=== PATIENT | female | born 1970 | race Caucasian/White ===

== ENCOUNTER 2024-03-07 11:14 | Outpatient (OUT) | payer BC, SELFPAY ==
--- NOTE | 2024-03-07 11:17 | MM_ITS ---
Patient Name: EZ EDMONDSON MR#: [id number] : 1970 Exam Date: 03/07/2024 Ordering Doctor: DR RILEY VALVERDE M.D. RADIOLOGY REPORT PROCEDURE: MM TOMOSYNTHESIS SCREENING BI COMPARISON: MG MAMM SCREEN 3D ELDON CAD, 12/22/2022. MG MAMM DX 3D RT CAD, 05/31/2022. MG MAMM ELDON SCRN W CAD DIG, 12/10/2012. INDICATIONS: Screening Calculator Name NCI Breast Cancer Risk Assessment Tool 5 Year Breast Cancer Risk 1.00% Lifetime Breast Cancer Risk 6.70% Personal Breast Cancer No Personal Ovarian Cancer No Treatments None Family Cancers Father with lymphoma cancer at age 66; Grandfather-paternal with colon cancer at age 66. LOCATION: [facility] BREAST COMPOSITION: The breasts are extremely dense, which lowers the sensitivity of mammography. FINDINGS: DIAGNOSTIC CATEGORY 1--NEGATIVE. RIGHT BREAST: No significant suspicious finding. No significant change has occurred. LEFT BREAST: No significant suspicious finding. No significant change has occurred. RECOMMENDATIONS: ROUTINE MAMMOGRAM AND CLINICAL EVALUATION IN 12 MONTHS. PLEASE NOTE: A NORMAL MAMMOGRAM DOES NOT EXCLUDE THE POSSIBILITY OF BREAST CANCER. A CLINICALLY SUSPICIOUS PALPABLE LUMP SHOULD BE BIOPSIED. Dictated by: Bebo Garvin M.D. on 03/07/2024 at 14:20 Approved by: Bebo Garvin M.D. on 03/07/2024 at 14:27
== END 2024-03-07 11:15 | disposition home or self-care (01) ==
LOC: MAMMO 11:15
PROVIDERS: PCP Internal Medicine; Visit Provider Internal Medicine
DX: Z12.31 Encounter for screening mammogram for malignant neoplasm of breast (principal); Z80.7 Family history of other malignant neoplasms of lymphoid, hematopoietic and related tissues; Z80.0 Family history of malignant neoplasm of digestive organs
CPT/HCPCS: 77063; 77067

== ENCOUNTER 2025-07-15 10:00 | Outpatient (OUT) | payer BC, SELFPAY ==
--- OUTSIDE RECORDS SUMMARY | 2024-07-09 16:00 | XMS_ITS ---
Author Organization [facility] Address [address] [facility] [address] [place] [address] Care Team Providers Care Carpet Finishing Supervisor Name Role Phone Catalina Danielson Primary Care Provider [phone] Angel Schultz Unavailable [phone] CATALINA DANIELSON MD Unavailable Unavailable REASON FOR VISIT lab [facility]RAYSON NF Encounters Encounter Location Date Provider Diagnosis [facility] [address] [facility] [address] [place] [address] 07/09/2024 Angel Schultz Plan Of Treatment No Information Progress Notes * Barbara EDMONDSONDOB:[birth year] (55 yo F)Acc No.[id number]:07/09/2024 Patient:?Barbara Edmondson ??External :?Angel Schultz MDDOB: 1970???Age:54 Y???Sex:FemaleDate:07/09/2024hone:[phone]:[address] , [place], [place]-[address]Pcp:Catalina Danielson Subjective: * Chief Complaints: * l ab [facility]GE GRAYSON NF * Electronic signature of Angel Schultz MD on 07/20/2025 at 07:09 AM ESTSign off status: Pending * Provider: Tatyana Schultz MD Date: 1 09/09/2023 Generated for Printing/Faxing/eTransmitting on:?07/20/2025 07:09 AM EST
--- OUTSIDE RECORDS SUMMARY | 2024-07-17 02:30 | XMS_ITS ---
Author Organization [facility] Address [address] [facility] [address] [place] [address] Care Team Providers Care Marketing Administrative Assistant Name Role Phone Catalina Danielson Primary Care Provider [phone] Angel Schultz Unavailable [phone] CATALINA DANIELSON MD Unavailable [facility] [phone] Erum Haider Reduction mammoplasty & Lipo FA, hips, FBR & skin exc -General Encounters Encounter Location Date Provider Diagnosis [facility] [id number] [id number] [facility] [address] [place], [place] [id number] 07/17/2024 [facility] Plan Of Treatment No Information Progress Notes * Barbara EDMONDSONDOB:[birth year] (55 yo F)Acc No.[id number]:07/17/2024 Progress Note Patient: Barbara Ramos ??External :[facility]: 1970???Age:54 Y???Sex:FemaleDate:4Phone:[phone]:[address] , [place], [place]-[address]Pcp:Catalina Danielson Subjective: * Chief Complaints: * Robina Haider Reduction mammoplasty & Lipo FA, hips, FBR & skin exc -General * Electronic signature of [facility] Yumiko MD on 07/20/2025 at 07:09 AM EST Sign off status: Pending * Provider: Ed Calderon Date: 09/17/2023 Generated for Printing/Faxing/eTransmitting on:?07/20/2025 07:09 AM EST
--- OUTSIDE RECORDS SUMMARY | 2024-07-31 07:45 | XMS_ITS ---
Author Organization [facility] Address [address] [facility] [address] [place] [address] Care Team Providers Care Sterile Processing Manager Name Role Phone Catalina Danielson Primary Care Provider [phone] Angel Schultz Unavailable [phone] CATALINA DANIELSON MD Unavailable Unavailable Allergies Allergen (clinical drug ingredient) Drug/Non Drug Allergy documented on EMR Reaction Allergy Type Onset Date Status Substance with sulfonamide s tructure and antibacterial mechanism of action (substance) Sulfa Antibiotics Unknown Drug Allergy Active REASON FOR VISIT post op RM ,lipo Medications Medication SIG (Take, Route, Frequency, Duration) Notes Start Date End Date Status Metoprolol Succinate ER ActiveCephalexin 500 MG Tablet1 tablet Orally Four times a day; Duration: 5 day(s)4ActivePROzacActivePromethazine HCl 12.5 MG Tablet1 tablet as needed Orally every 6 hrs; Duration: 5 day(s)4ActiveoxyCODONE- Acetaminophen 5-325 MG Tablet1 tablet as needed Orally every 6 hrs; Duration: 7 days07/16/2024ctiveLORazepamActiveAspirinActive Vital Signs Height 66 in 07/31/2024 Weight 200 lbs 07/31/2024 BMI 32.28 kg/m2 07/31/2024 Encounters Encounter Location Date Provider Diagnosis [facility] [address] [id number]/MARGE [address] [facility] [address] [place] [address] 07/31/2024 Catalina Danielson Macromastia N62 Assessments Encounter Date Diagnosis (ICD Code) Assessment Notes Treatment Notes Treatment Clinical Notes Section Notes 07/31/2024 Macromastia (ICD-10 - N62) Continue aggressive compression Pathology report was discussed with patient. Please see scanned report Scar management was advised Plan Of Treatment Treatment Notes Assessment Notes Macromastia Continue aggressive compression Pathology report was discussed with patient. Please see scanned report Scar management was advised Next Appt Details Follow Up: 4 Weeks, Reason: History and Physical Notes * HPI (History of Present Illness) CategorySub-CategoryDetailNotesCategory NotesPost-Op VisitsBody Surgery Follow-Up:The patient is post-op from RM and Liposuction of FA, Hips, FBR and skin excision, The patient has been compliant with post op instructions, This is a postoperative visit at approximately day 14, Thepatient complains of nothing. Examination CategorySub-CategoryDetailNotesCategory NotesPlastic Surgery ExaminationsGeneral ExaminationGENERAL APPEARANCE: normal, alert, well hydrated, in no distress, oriented x 3, pleasantPostoperative Check/Procedure:Type of Surgery, RM, Surgical incision clean,dry,and intact, No evidence of seroma or hematoma, Nipp le areola complex are symmetric with intact sensation, No signs and symptoms of infection Skin EX,,Surgical incision clean,dry,and intact, No evidence of seroma or hematoma, No signs and symptoms ofinfection Progress Notes * Barbara EDMONDSONDOB:[birth year] (55 yo F)Acc No.[id number]:07/31/2024 Progress Note Patient: Barbara Ramos ??External :?Catalina Danielson, MDDOB: 1970???Age:54 Y???Sex:FemaleDate:07/31/2024Phone:[phone]:[address], [facility] Subjective: * Chief Complaints: * p ost op RM ,lipo * HPI: ???Post-Op Visits:?Body Surgery Follow-Up:?The patient is post-op from RM andLiposuction of FA, Hips, FBR and skin excision, The patient has been compliant with post op instructions, This is a postoperative visit at approximately day 14, The patient complains of nothing.. * Medical History: Anemia Diabetic A-fib Depression Anxiety Medical History Verified * Surgical History: GALLBLADDER OUT ? WISDOM THEETH REMOVAL ? asc RM ? Surgical History verified.? * Ocular Surgical History: * Hospitalization/Major Diagno stic Procedure: Denies Past Hospitalization.? Hospitalization Verified.? * Family History: F ather: diagnosed with Hypertension, Heart Disease. M other: diagnosed with Hypertension.?Paternal Grand Father: diagnosed with Cancer. F amily History Verified.. * Social History: Social History Verified. No Social History documented. * Medications: T akingAspirin Cephalexin 500 MG Tablet 1 tablet Orally Four times a day LORazepam Metoprolol Succinate ER oxyCODONE-Acetaminophen 5-325 MG Tablet 1 tablet as needed Orally every 6 hrs Promethazine HCl 12.5 MG Tablet 1 tablet as needed Orally every 6 hrs PROzac Medication List reviewed and reconciled with the patientTaking Aspirin Taking Cephalexin 500 MG Tablet 1 tablet Orally Four times a day Taking LORazepam Taking Metoprolol Succinate ER Taking oxyCODONE-Acetaminophen 5-325 MG Tablet 1 tablet as needed Orally every 6 hrs Taking Promethazine HCl 12.5 MG Tablet 1 tablet as needed Orally every 6 hrs Taking PROzac Medication List reviewed and reconciled with the patient * Allergies: S ulfa Antibiotics - Criticality UnknownyesAllergies Verified. Objective: * Vitals: H eight: 66 in, Weight: 200 lbs, BMI:32.28Index, Risk Score: Not Taken - No Medical Need. Vision Examination:? * Examination: ???Plastic Surgery Examinations: ?General Examination?GENERAL APPEARANCE: normal, alert, well hydrated, in no distress, oriented x 3, pleasant.?Postoperative Check/Procedure:?Type of Surgery, ?RM, Surgical incision clean,dry,and intact, No evidence of seroma or hematoma, Nipple areola complex are symmetric with intact sensation, No signs and symptoms of infection ?Skin EX,, Surgical incision clean,dry,and intact, No evidence of seroma or hematoma, No signs and symptoms of infection.? Assessment: * Assessment: 1.?Macromastia - N62 (Primary)??? Plan: * Treatment: Notes: Continue aggressive compression ?Pathology report was discussed with patient. Please see scanned report ?Scar management was advised?? * Follow Up: 4 Weeks Billing Information: * Visit Code: [id number] Post op Visit. * Electronic signature of Catalina Danielson MD on 07/20/2025 at 07:09 AM ESTSign off status: Pending * Provider: Lana Danielson MD Date: 0 07/31/2024 Generated for Printing/Faxing/eTransmitting on:?07/20/2025 07:09 AM EST
--- OUTSIDE RECORDS SUMMARY | 2025-07-07 06:44 | XMS_ITS | Continuity of Care Document ---
Author Organization [facility] Address [address] [place] [address] Phone Care Team Providers Care Apartment Manager Name Role Phone Gerardo Poe II Primary Care Provider [phone] Kay Marlow APRN Emergency Provider [phone] Cheryl Douglas NP-C Attending Provider Moy Quick MD Attending Provider Dara Izaguirre DO Attending Provider Care Teams Patient Care Team Team Status: Active Member Role/Relationship Status Dates Gerardo Poe II MD Primary Care Provider Active Visit Care Team Team Status: Inactive Member Role/Relationship Status Dates Gerardo Poe II MD Primary Care Provider Active Start: June 07, 2025 End: June 07Tucker Finch ProviderActiveStart: June 07, 2025 End: June 07, 2025 Visit Care Team Team Status: Inactive Member Role/Relationship Status Dates Gerardo Poe II MD Primary Care Provider Active Start: June 18, 2025 End: June 18, 2025Lucina Ho ProviderActiveStart: June 18, 2025 End: June 18, 2025 Visit Care Team Team Status: Inactive Member Role/Relationship Status Dates Gerardo Poe II MD Primary Care Provider Active Start: July 02, 2025 End: July 02, 2025Jackie R Misael , ADMINISTRATIVE NURSING SUPERVISOR-CAttending ProviderActiveStart: July 02, 2025 End: July 02, 2025 Visit Care Team Team Status: Inactive Member Role/Relationship Status Dates Gerardo Poe II MD Primary Care Provider Active Start: July 02, 2025 End: July 02, 2025Moy Tiffanie Amanda Quick ProviderActiveStart: July 02, 2025 End: July 02, 2025 Patient Care Team Team Status: Inactive Member Role/Relationship Status Dates Gerardo Poe II MD Primary Care Provider Active Start: July 07, 2025 End: July 07, 2025Wicho Flores ProviderActiveStart: July 07, 2025 End: July 07, 2025 Chief Complaint and Reason for Visit Chief Complaint Admit Date head pain June 07, 2025 1 1:54am ref by Nicole Barnes for dysplasia caroti d arteries June 18, 2025 10:20am 2 week follow up; Carotid U/S at 10:00am July 02, 2025 9:45am I65.23 July 02, 2025 9 :47am ADMINISTRATIVE NURSING SUPERVISOR - Migraines - OK TO ADD SOONER PER ND July 07, 2025 10:51am Reason for Visit Admit Date Fibromuscular dysplasia of both carotid arteries June 18, 2025 10:20am Migraine headache June 18, 2025 10:20am Fibromuscular dysplasia of both carotid arteries July 02, 2025 9:45am Migraine headache July 02, 2025 9 :45am Reason for Referral Type Reason(s) Provider Provider Contact Information [facility] Address Start Date Migraine headache G43.909 - Migraine, unspecified, not intractable, without status migrainosus Gerardo Poe II MDWork Phone: [phone] [facility] [address] [facility] [address] - Migraine, unspecified, not intractable, without status migrainosus[address] [address]Xyhusznx [address]24 Allergies, Adverse Reactions, Alerts Allergen Type Severity Reaction Last Updated Verified Status moxifloxacin Allergy Unknown rash June 11:01am Yes Active sulfacetamide Allergy Unknown rash June 11:01am Yes Active sulfamethoxazole Allergy Unknown rash July 07, 2025 11:01am Yes Active sulfur Allergy Unknown rash July 07, 2025 11:01am Yes Active trimethoprim Allergy Unknown rash June 11:01am Yes Active Sulfa (Sulfonamide Antibiotics) Allergy Unknown Hives July 07, 2025 11:01am Yes Active ct scan dye Allergy Severe Rash June 07, 2025 12:09pm No Active Social History Smoking Status Status Start Date End Date Date of Observa tion Ex-smoker (finding) July 06, 2025 11:23am Observation Status Observation Response Date of Response Legal Sex Female (finding) [facility] 1969[facility] Family History Relationship Condition Age at Onset Recorded Date/T hany father Heart disease Unknown Problems Active Problems Problem Diagnosis/Recorded Date Onset Date Stat us Fibromuscular dysplasia of b oth carotid arteries June 18, 2025 3:03pm Unknown Active Migraine headache June 18, 2025 3:03pm Unknown Active Animal bite of buttock May 28, 2019 6:10pm Unkno wn Active Hx of cholecystectomy June 18, 2025 10:29am Unkn own Active Inactive/Resolved Problems Problem Diagnosis/Recorded Date Onset Date Stat us Headache June 07, 2025 3:30pm Unknown Re solved Medications Medication Status Dose Units Route Directions Qty Days Refills S tart Date Stop Date End Date Reason(s) Instructions Adherence Aspirin 325 mg Tablet Discontinued 325 MG PO Daily June 05, 2017 12:00amNove2024 10:27amFluoxetine 10 mg Tablet Zspoymsiwsss97ROWFVwtpsDmwbummd 2016 12:00amOctro[facility] 2018 4:37pm Metoprolol Tartrate 50 mg YtrrgfVlmfft84ZZOUIhzoxCctknjny 2016 12:00am Complies with drug therapyOmeprazole Magnesium (Prilosec Otc) 20 mg Tablet,Delayed Release (Dr/Ec)Oznjiq17PTWFQzlqpBolknsad 2016 12:00am Complies with drug therapyFerric Carboxymaltose (Injectafer) 50 iron mg/mL JzxmjgcvYbajkxwkcimz25wy/weEVO4AEpaespjc 2016 12:00amOctober 2018 4:37pmFluoxetine 20 mg fvybmdrEctckj85WNILSbcpoTjxeotq 2018 11:00pm Complies with drug therapyLorazepam 0.5 mg tabletActive0.5MGPOEvery 8 hours as needed for anxietyJune 07, 2025 12:00amComplies with drug therapyTizanidine 4 mg tabletDiscontinuedMGPONove2024 12:00amDecember 2024 11:02am Aspirin 81 mg tablet,nrggumqqEjtfdw79EVZQZfmsaTlbaddvn 20th, 2025 12:00am Complies with drug therapy Immunizations Immunization Event Date Not Given Reason Dose Number Signal Operator Lot Number Reason(s) Given Vaccine Information Statement (VIS) Detail Administration Location Rabies Immune Globulin May 28, 2019 [id number] CtrRabies Vaccine, flury-lep [id number] CtrRabies Vaccine, flury-lep strain May 31, [id number] CtrRabies Vaccine, flury- lep strainJune 04, [id number] CtrRabies Vaccine, flury-lep strainNovhopi health care center [id number] Ctr Procedures Procedure Date Performed Status CT head/brain wo con June 07, 2025 12:22pm completed CT angio head June 07, 2025 12:27pm compl eted CT angio neck June 07, 2025 12:27pm compl eted US carotid doppler BI July 02, 2025 9:47am completed Relevant Diagnostic Tests and/or Laboratory Data Laboratory Results Test Collection Date/Time Result Date/Time Result Interpretation Reference Range Result Comment Performing Site Corrected White Blood Count June 07, 2025 12:33pm June 07, 2025 12:50pm 6.2 10*3/uL 3.8-11.6[facility]ari[facility] [id number] [address] [facility] [address]Qjlsvdzjvmb WBC CountJune 07, 2025 12:33pmJune 07, 2025 12:50pm6.2 10*3/uL3.8-11.6FMarietta Memorial Hospital [id number] [address] [facility] [address]Ean Blood CountJune 07, 2025 12:33pmJune 07, 2025 12:50pm4.29 10*6/uL3.60-5.00[facility] [id number] [address] [facility] [address]WrlnetkmlmWhpseqko 2024 12:33pmNovember 2024 12:50pm 13.2 g/dL11.8-15.4FProMedica Flower [facility] [id number] [address] [facility] [address]SedyejexceBsajfbjh 2024 12:33pmNovember 2024 12:50pm 39.3 %34.0-46.4FProMedica Flower Hospital [facility]tr [id number] [address] [facility] [address]Bcrk Corpuscular VolumeNovember 2024 12:33pmNovember 2024 12:50pm91.6 dQ83-265DzrsoubswGlenbeigh Hospital Ctr [id number] [address] [facility] [address]Izdc Corpuscular HemoglobinNovember 2024 12:33pmNovember 2024 12:50pm30.8 pg24.7-34.3FProMedica Flower Hospital [facility] [id number] [address] [facility] [address]Zsxn Corpuscular Hemoglobin ConcentNovember 2024 12:33pm November 2024 12:50pm33.7 g/dL32.0-35.0[facility] [id number] [address] [facility] [address]Fwt Cell Distribution WidthNovember 2024 12:33pmNovember 2024 12:50pm13.4 %11.9-15.3FProMedica Flower [facility] [id number] [address] [facility] [address]Ajqieinv CountNov2024 12:33pmNovember 2024 12:33nb021 10*3/dF108-733BwhpxxbitGlenbeigh Hospital [facility]tr [id number] [address] [facility] [address]Enqj Platelet VolumeNovember 2024 12:33pmNovember 2024 12:50pm10.4 fL6.3-10.7FProMedica Flower Hospital [facility]tr [id number] [address] [facility] [address]Gskthaze Distribution WidthNovember 2024 12:33pmJune 07, 2025 12:50pm18.14 %0.00-20.00[facility] [id number] [address] [facility] [address]Atkktunvmwc (%) (Auto)June 07, 2025 12:33pmNov2024 12:50pm64.8 %.[facility] [id number] [address] [facility] [address]Vfqydeuxwik (%) (Auto)June 07, 2025 12:33pmNov2024 12:50pm25.6 %.[facility] [id number] [address] [facility] [address]Dhwtwunlj (%) (Auto)June 07, 2025 12:33pmNov2024 12:50pm6.9 %.[facility] [id number] [address] [facility] [address]Cspujuxafcd (%) (Auto)June 07, 2025 12:33pmNov2024 12:50pm2.2 %.[facility] [id number] [address] [facility] [address]Lygseemxs (%) (Auto)June 07, 2025 12:33pmNov2024 12:50pm0.5 %.[facility] [id number] [address] [facility] [address]Gnlnujppi RBC Relative Count (auto)June 07, 2025 12:33pm June 07, 2025 12:50pm0.1 /100{WBC}0-0.5FProMedica Flower Hospital [facility]tr [id number] [address] [facility] [address]Vkvygikcgwv # (Auto)June 07, 2025 12:33pmNov2024 12:50pm4.0 10*3/uL1.8-7.7FProMedica Flower Hospital [facility]tr [id number] [address] [facility] [address]Ixnpjsjcwqz # (Auto)June 07, 2025 12:33pmNov2024 12:50pm1.6 10*3/uL1.00-4.8[facility] [id number] [address] [facility] [address]Fokwioftz # (Auto)June 07, 2025 12:33pmNov2024 12:50pm0.4 10*3/uL0.0-0.8[facility] [id number] [address] [facility] [address]Dcxynxpwapg # (Auto)June 07, 2025 12:33pmNov2024 12:50pm0.1 10*3/uL0.0-0.45[facility] [id number] [address] [facility] [address]Vjikyjowc # (Auto)June 07, 2025 12:33pmNov2024 12:50pm0.0 10*3/uL0.0-0.2FProMedica Flower Hospital [facility]tr [id number] [address] [facility] [address]Apzwjnklcha Sedimentation RateJune 07, 2025 12:33pm June 07, 2025 1:19pm16 mm/hr0-29[facility] [id number] [address] [facility] [address]Dekwkutpksy TimeJune 07, 2025 12:33pmNov2024 1:05pm11.4 s9.0-12.9A hematocrit value greater than 55% may lead to inaccurate results in coagulation testing. Patientshaving hematocrit values >55% require a special collection tube for coagulation studies. Please contact the laboratory at [phone] for redraw instructions.[facility] [id number] [address] [facility] [address]Wyeadohpj Time International RatioNovember 2024 12:33pm June 07, 2025 1:05pm1.0INR Therapeutic Range A) Pre- and Peroperative OAT started two weeks before surgery. NOT HIP SURGERY: 1.5 - 2.5 HIP SURGERY: 2 - 3B) Primary and secondary prevention of venous THROMBOSIS: 2 - 3C) Active venous thrombosis, pulmonary embolismand prevention of recurrent venous thrombosis: 2 - 3D) Prevention of arterial thromboembolismincluding patients with mechanical heart valves: 3 - 4.5FProMedica Flower [facility] [id number] [address] [facility] [address]Ofypnpf LevelJune 07, 2025 12:33pmJune 07, 2025 1:94ej722 mg/dLAbove high qsbgva32-481ROQ recommended reference rangeRandom Glucose Reference Range is dependent on time and content of last meal. Glucose of more than 200 mg/dL in a nonstressed, ambulatory subject supports the diagnosisof Diabetes Mellitus.[facility] [id number] [address] [facility] [address]Tuknk Urea NitrogenJune 07, 2025 12:33pmJune 07, 2025 1:29pm18 mg/dL7-25[facility] [id number] [address] [facility] [address]ZyjxnwhgiwGoncertv 9th, 2025 12:33pmJune 07, 2025 1:29pm 0.64 mg/dL0.60-1.20[facility] [id number] [address] [facility] [address]Ibxhdtqvc GFR (CKD-EPI)June 07, 2025 12:332024 1:29pm> 60.0 mL/MinGlenbeigh Hospital Ctr [id number] [address] [place] [id number] LevelJune 07, 2025 12:33pmJune 07, 2025 1:29pm 139 mmol/C456-038XajphptkhGlenbeigh Hospital Ctr [id number] [address] [place] [id number] LevelJune 07, 2025 12:332024 1:29pm4.3 mmol/L3.5-5.1FProMedica Flower [facility] [id number] [address] [facility] [address]Jqrbohfe LevelJune 07, 2025 12:33pmJune 07, 2025 1:87gn471 mmol/V69-354CbredjcvdGlenbeigh Hospital Ctr [id number] [address] [place] [id number] Dioxide LevelJune 07, 2025 12:33pmJune 07, 2025 1:29pm27.5 mmol/L21.0-31.0[facility] [id number] [address] [facility] [address]Xlxsx GapJune 07, 2025 12:33pmNovember 2024 1:29pm 13.8 mEq/L6.0-15.0[facility] [id number] [address] [facility] [address]Rkcnduy LevelNovember 2024 12:33pmNovember 2024 1:29pm9.9 mg/dL8.6-10.3FProMedica Flower [facility] [id number] [address] [facility] [address]Wvhczjlag LevelNov2024 12:33pmNovember 2024 1:29pm1.9 mg/dL1.9-2.7FProMedica Flower Hospital [facility]tr [id number] [address] [facility] [address]Tffbe ProteinNovember 2024 12:33pmNov2024 1:29pm7.1 g/dL6.4-8.9[facility] [id number] [address] [facility] [address]IldclkbRrkiyrpc 9th, 2025 12:33pmNov2024 1:29pm4.6 g/dL3.5-5.7FProMedica Flower Hospital [facility] [id number] [address] [facility] 614[address]CfmndqbnVvjdyonr 9th, 2025 12:33pmNov2024 1:29pm2.5 g/dLGlenbeigh Hospital Ctr [id number] [address] [facility] [address]Owvgzyg/Globulin RatioNovember 2024 12:33pmNov2024 1:29pm1.8[facility] [id number] [address] [facility] 20[address]Tmqda BilirubinNov2024 12:33pmNov2024 1:29pm0.5 mg/dL0.3-1.0[facility] [id number] [address] [facility] [address]Wzcoaicdj Amino Transf (AST/SGOT)June 07, 2025 12:33pm June 07, 2025 1:29pm21 U/V20-11SxxjgoynfGlenbeigh Hospital Ctr [id number] [address] [facility] 237[address]Tnmruht Aminotransferase (ALT/SGPT)June 07, 2025 12:33pm June 07, 2025 1:29pm24 U/L7-52[facility] [id number] [address] [place] [address]Xqwhpgjr PhosphataseJune 07, 2025 12:33pmJune 07, 2025 1:29pm79 U/W12-530AnqluomwhGlenbeigh Hospital Ctr [id number] [address] [place] [address]Ppdkocua I High SensitivityJune 07, 2025 2:28pmJune 07, 2025 2:58pm8 ng/L0-15The Troponin units of report have been changed to meet the Chest Pain Accreditation requirement, element EC5.M1l2. Troponin units are changed from pg/ml to ng/L. Also, the decimal is removed and results are in whole numbers.[facility] [id number] [address] [place] [address]O-Adyvbqng Protein, QuantitativeJune 07, 2025 12:33pm June 07, 2025 1:29pm1.3 mg/dLAbove high normal0.0-0.5FProMedica Flower Hospital [facility]tr [id number] [address] [place] [address]Uywdsbok Creatinine Clearance (ChemNov2024 12:33pm June 07, 2025 1:86ay772.92[facility] [id number] [address] [place] [address] Diagnostic Imaging Reports Author Efrain Perera [facility] HospitalAuthoredNov2024 1:32pmReportDictated Date/TimeDictated ByStatusRadiology ReportNov2024 1:32pTery Perera II MDcompletedFMERCY HEALTH [facility] Main [address] [address] [address] Scan Report Signed Patient: Barbara Ford MR#: [id number] : 1970 Acct:[id number] Age/Sex: 55 / F ADM Date: 5 Loc: ER Room: Type: [facility] ER Attending Dr: Copies to: Kay Marlow APRN~ Ordering Provider: Kay Marlow APRN Date of Service: 06/07/25 CT/CT angio head: severe headache, suddent onset ([id number]) CT/CT angio neck: sudden onset severe headache ([id number]) CT/CT head/brain wo con: severe headache, suddent onset CT head/brain wo con, CT angio neck, CT angio head 06/07/2025 1:25 PM SIGNS AND SYMPTOMS: ^severe headache, suddent onset ^r/o aneurysm CONTRAST: 80 mL of intravenous Isovue-370 TECHNIQUE: Multi-detector CT angiography axial slices of the head were obtained before and during intravenous administration of IV contrast material. Sagittal, coronal, and 3-D reconstructions were performed and viewed on a separate workstation. CT was performed with one or more of the following dose reduction techniques: Automated exposure control, adjustment of the mA and/or kV according to patient size, or use of iterative reconstruction technique. Stenoses were measured using the NASCET criteria. COMPARISON: None. FINDINGS: Noncontrast head CT: There is no shift of the midline structures, acute intracranial bleeding, mass effects, or evidence of acute ischemia. Atherosclerotic changes are noted in the intracranial segments of the internal carotid arteries. The ventricular system is normal in size. The brainstem and the cerebellum are unremarkable. There is polypoid mucosal thickening in the right maxillary sinus. The visualized intraorbital contents and the visualized soft tissue in the infratemporal spaces show no abnormality. The osseous structures in the skull base and the calvarium show no acute abnormality. CTA HEAD: The superior cerebellar arteries, posterior inferior cerebellar arteries, and the basilar artery are within normal limits. The posterior cerebral arteries are unremarkable. The intracranial segments of the internal carotid arteries are within normal limits. There are normal anterior and middle cerebral arteries. Anterior communicating artery is patent. Posterior communicating arteries are present. The deep venous system and dural venous systems appear to be patent. No bony abnormalities are appreciated. CTA NECK: There is a normal three-vessel arch. The subclavian arteries are within normal limits. The vertebral arteries arise from the subclavian arteries and are normal in course and caliber up to the skull base. Calcified plaque is noted in the carotid bifurcations without significant stenosis. Irregular narrowing is noted in the mid cervical segments of the internal carotid arteries right greater than left suggesting fibromuscular dysplasia. Visualized lung parenchyma is clear. Pleural-based calcified nodules are noted in the left lung apex. No acute bony abnormalities are identified. The paraspinous soft tissues are within normal limits. CT/CT head/brain wo con IMPRESSION: No acute intracranial pathology. Irregular narrowing is noted in the mid cervical segments of the internal carotid arteries right greater than left suggesting fibromuscular dysplasia. No evidence of focal stenosis, aneurysmal dilatation, dissection or occlusion, otherwise. Impression dictated by: Efrain Perera M.D. 06/07/2025 1:51 PM Dictation Location: [facility]-- Transcribed By: [facility] 06/07/25 1351 Dictated By: Efrain Perera II, MD 06/07/25 1332 Signed By: <Electronically signed by Efrain Perera II, MD in OV> 06/07/25 1351 Author Cm Russ [facility] HospitalAuthoredDeunited states [facility] 2024 8:25amReportDictated Date/TimeDictated ByStatusRadiology ReportDeunited states air [facility] 2024 8:25Robina Jensen MDcompleteAult[facility] [address] [place] [address] Ultrasound Report Signed Patient: Barbara Ford MR#: [id number] : 1970 Acct:[id number] Age/Sex: 55 / F ADM Date: 5 Loc: [facility] Room: Type: [facility] Attending Dr: Moy Quick MD Ordering Provider: Moy Quick MD Date of Service: 07/02/25 US/US carotid doppler BI: I65.23 - Occlusion and stenosis of bilateral carotid whit... Copies to: Moy Quick MD~ CAROTID DUPLEX INDICATION: High risk features for carotid stenosis PROCEDURE: Color-flow duplex scanning is used to interrogate the extracranial carotid arterial system, as well as both vertebral arteries. Both carotid bifurcations show mild to moderate heterogeneous plaque formation. The proximal right internal carotid artery shows a highest peak systolic velocity of 108 cm/s with an end-diastolic velocity of 28.2 cm/s . The mid internal carotid artery measures 103 cm/s peak systolic and 42.3 cm/s end diastolic. The distal segment measures 134 cm/s peak systolic with an end diastolic velocity of 49.4 cm/s . The velocities of the right common carotid artery are 132 cm/s peak systolic and 34.7 cm/s end-diastolic proximally and 118 cm/s peak systolic and 32.2 cm/s end diastolic distally. The peak systolic velocity ratio of the internal to the common carotid artery is 1.02. The right external carotid artery measures 166 cm/s peak systolic. The right vertebral artery is patent at 62.7 cm/s with antegrade flow. The proximal left internal carotid artery shows a highest peak systolic velocity of 70.8 cm/s with an end-diastolic velocity of 20.5 cm/s . The mid internal carotid artery measures 95.3 cm/s peak systolic and 35 cm/s end diastolic. The distal segment measures 91 cm/s peak systolic with an end diastolic velocity of 32.9 cm/s . The velocities of the left common carotid artery are 149 cm/s peak systolic and 35.1 cm/s end-diastolic proximally and 101 cm/s peak systolic and 25.2 cm/s end diastolic distally. The peak systolic velocity ratio of the internal to the common carotid artery is 0.64 . The left external carotid artery measures 128 cm/s peak systolic. The left vertebral artery is patent at 78.4 cm/s with antegrade flow. US/US carotid doppler BI IMPRESSION: MILD TO MODERATE PLAQUE FORMATION IS NOTED BILATERAL EXTRACRANIAL CAROTID AR TERIES. MODERATE STENOSIS OF 50-69% WAS FOUND IN THE RIGHT INTERNAL CAROTID ARTERIES. Left carotid artery less than 50% stenosis Impression dictated by: Cm Russ M.D. 07/03/2025 8:27 AM Dictation Location: [place] [address] Tech: Brittany Watsonkalyan Transcribed By: PWS 07/03/25826 Dictated By: Cm Russ MD 07/03/25824 Signed By: <Electronically signed by Cm Russ MD in OV> 07/03/25826 Vital Signs Vital Reading Result Reference Range Collection Date/Time Height 65 [in_i] June 07, 2025 12:57xkBatify65.71 kgNovember 2024 12:09pmBody Qqgqhcwwzcy18.4 [degF]97.6-99.0Nov2024 12:09pmHeart Rate80 /apq10-157 June 07, 2025 3:24pmRespiratory rate18 /vkn38-11HfhndsbmJune 07, 2025 3:24pm Oxygen saturation by Pulse zezkmzaj17 %95-100June 07, 2025 3:24pmBP Gnicrecd025 mm[Hg]100-140June 07, 2025 3:24pmBP Icuvwitfa86 mm[Hg]60-100 June 07, 2025 3:54oxNkayem98 [in_i]June 18, 2025 10:99auUsbrxk83.25 kgJune 18, 2025 10:30amBody Atpyizimoxu82.8 [degF]97.6-99.0June 18, 2025 10:30amHeart Rate91 /gfl59-286AwfyetyxJune 18, 2025 10:30amOxygen saturation by Pulse %95-100June 18, 2025 10:30amBP Kxbsvnmy279 mm[Hg] 100-140June 18, 2025 10:30amBP Bhbxekkwe58 mm[Hg]60-100June 18, 2025 10:30amBMI (Body Mass Index)34.9 kg/d2SrbowmnuJune 18, 2025 10:30amBody Ziprgybbwss86.6 [degF]97.6-99.0Dece2024 10:26amHeart Rate67 /oil42-487 July 02, 2025 10:26amOxygen saturation by Pulse hpcvykyp25 %95-100Dece2024 10:56onEgllei38 [in_i]July 07, 2025 10:88arZldzvm93.03 kgDece2024 10:55amHeart Rate72 /xod80-874Favrkncs 9th, 2025 10:55amOxygen saturation by Pulse yxqbbdrn45 %95-100December 2024 10:55amBP Bwcirmqh147 mm[Hg]100-140Decemb2024 10:55amBP Kkcbqqalp38 mm[Hg]60-100December 2024 10:55amBMI (Body Mass Index)35.9 kg/p5Oeelsbun 2024 10:55am Advance Directives Advance Directive Response Recorded Date/ Time Advance Directives No July 06, 2025 11:23am Insurance Providers Guarantor Barbara Ford Address [address] [address] [facility] [address] Info.Home Phone: Coverage Status Update:2025 Payer Group Member ID Coverage Type Subscriber Relationship to Subscriber Effective Date Expiration Date Asmita SMITH/ZHENG Id: [id number] L Crawford Id: [id number] [address] [address] [facility] [address] Home Phone: Email: [email or web address]: [email or web address] Crawford Id: [id number] [address] [facility] [address] Home Phone: Encounters Encounter Location(s) Arrival/Admit Date Discharge/Departure Date Discharge/Departure Disposition Provider(s) Departed Emergency -Emergency Room June 07, 2025 11:54am June 07, 2025 3:53pm Discharged to home care or self care (routine discharge) Departed Physician/Provider Office [facility] SurgNovember 2024 10:20amNovember 2024 11:14amDischarged to home care or self care (routine discharge)Cheryl Douglas , APRNDeparted Physician/Provider [facility]Dec[facility] 2024 9:45amDecember 2024 10:29amDischarged to home care or self care (routine discharge)Cheryl Douglas , APRNDeparted Clinical-[facility]ascularDeun[facility] 2024 9:47amDecember 2024 9:48amDischarged to home care or self care (routine discharge)Moy Quick , MDDeparted Physician/Provider [facility]rologyDeun[facility] [employer] [facility] 2024 10:51amDecember 2024 11:44amDischarged to home care or self care (routine discharge)Dara Izaguirre , DO Recent Diagnosis Onset Date Admit Date Fibromuscular dysplasia of b oth carotid arteries Unknown June 18, 2025 10:20am Migraine headache Unknown June 18, 2025 10:20am Fibromuscular dysplasia of b oth carotid arteries Unknown July 02, 2025 9:45am Migraine headache Unknown July 02, 2025 9:45am Assessments Diagnosis Onset Date Resolution Status Admit Date Fibromuscular dysplasia of both carotid arteries acuteNovember 2024 10:20amMigraine headacheacuteNovember 2024 10:20amFibromuscular dysplasia of both carotid arteriesacuteDecemb2024 9:45amMigraine headacheacuteDeceer 2024 9:45am Plan of Treatment Author Cheryl Douglas [facility]2024 3:10pmPatient with history of chronic migraine headaches. Most recent episode of headache was quite intense and by her explanation resembles a thunderclap headache. It was quite intense and almost debilitating for the patient. I believe she would benefit from evaluation by neurology specialist Dr. Dara Izaguirre to discuss better management of her chronic headaches. I did send a referral to [facility] to discuss further with Dr. Izaguirre. Patient verbalizes understanding and agrees with this plan. She will continue use of her OTC Tylenol as needed until getting into see neurology hopefully in the near future. Incidental finding of irregular narrowing in the mid cervical segments of the internal carotid arteries suggesting fibromuscular dysplasia. There was no evidence of focal stenosis, aneurysmal dilation, dissection or occlusion otherwise. Patient does not have any hemispheric symptoms whatsoever. Her only complaint throughout this whole thing was this severe and sudden onset headache. I did discuss the recent CTA findings with Dr. Quick while patient was in the office today who recommends follow-up duplex studies to fully evaluate the carotid arteries. This should complete our workup. I did discuss with the patient signs or symptoms that would warrant return for further evaluation prior to her next scheduled appointment. She verbalizes understanding of our discussion today and agrees with this plan. Denies additional questions. Author Cheryl Douglas [facility] 2024 3:08pmWe reviewed the results of her carotid duplex studies in the office today which show no hemodynamically significant stenosis bilaterally. She has not had any hemispheric symptoms whatsoever. She does continue with the chronic headache that has been ongoing since her initial ER visit. She has had a couple episodes of what sounds to be thunderclap headache as she describes it to be quite intense and debilitating when it happens. We have sent her to [facility] neurology to see Dr. Izaguirre to talk further about her chronic headaches. Unfortunately they have appointment however not able to get her in until August. I will reach out to Dr. Izaguirre and see if they can possibly fit her in anytime sooner. There is no need for further follow-up here in our office as she does not have any vascular surgery needs. Future Tests Future scheduled test information is unavailable Pending Tests Pending diagnostic test information is unavailable Future Visits Future appointment information is unavailable Future Procedures Future procedure information is unavailable Future Medications Future medication information is unavailable Patient Instructions Instruction Admit Date Headache in adults - ED discharge instru ctions June 07, 2025 11:54am
--- OUTSIDE RECORDS SUMMARY | 2025-07-09 14:00 | XMS_ITS | Encounter Summary ---
Author Organization [facility] Address [address] [place] [address] Care Team Providers Care Automobile Engine Assembler Name Role Phone Gerardo Poe MD Primary Care Provider [phone] Gerardo Poe MD Unavailable [phone] Griselda Pittman LPN Unavailable Reason for Visit * Imaging (Routine) - ClosedSpecialtyDiagnoses / ProceduresReferred By Contact Referred To ContactRadiology Diagnoses Fibromuscular dysplasia of both carotid arteries Acute intractable headache, unspecified headache type Procedures MR angiogram head wo IV contrast MR angiogram head w IV contrast Gerardo Poe MD [address] [facility] [address] [place] [address] Phone: tel: fax: [facility] [address] [facility] [address] [place] [address] Phone: tel: fax: Referral IDStatusReasonStart DateExpiration DateVisits RequestedVisits [id number]/4/20256/ Encounter Details DateTypeDepartmentCare Team (Latest Contact Info)Fevzeitcwkh42/11/2025 2:00 PM ESTAncillary Procedure [facility] [address] [facility] [place] [id number] Fibromuscular dysplasia of both carotid arteries; Acute intractable headache, unspecified headache type Social History Tobacco UseTypesPacks/DayYears UsedDateSmoking Tobacco: FormerCigarettesQuit: 07/30/2013Smokeless Tobacco: NeverAlcohol UseStandard Drinks/WeekCommentsNever0 (1 standard drink = 0.6 oz pure alcohol)caffeine 1-2 cups/dayHumiliation, Afraid, Rape, and Kick questionnaireAnswerDate RecordedWithin the last year, have you been afraid of your partner or ex-partner?No09/03/2023Within the last year, have you been humiliated or emotionally abused in other ways by your partner or ex-partner?Patient lpvfmobu43/05/2024Within the last year, have you been kicked, hit, slapped, or otherwise physically hurt by your partner or ex-partner?No09/03/2023Within the last year, have you been raped or forced to have any kind of sexual activity by your partner or ex-partner?No09/03/2023 Social Connection and Isolation PanelAnswerDate RecordedIn a typical week, how many times do you talk on the phone with family, friends, or neighbors?Three times a week09/03/2023How often do you get together with friends or relatives? Never09/03/2023How often do you attend episcopal or adventism services?More than 4 times per year09/03/2023o you belong to any clubs or organizations such as episcopal groups, unions, fraternal or athletic groups, or school groups?No 09/03/2023How often do you attend meetings of the clubs or organizations you belong to?Patient yjgqocgr76/05/2024re you , , , , never , or living with a partner?Ekgcelm9309/03/2023UDIT-C AnswerDate RecordedQ1: How often do you have a drink containing alcohol?Never 09/03/2023Q2: How many drinks containing alcohol do you have on a typical day when you are drinking?Patient does not drink09/03/2023Q3: How often do you have six or more drinks on one occasion?Never09/03/2023Overall Financial Resource Strain (CARDIA)AnswerDate RecordedHow hard is it for you to pay for the very basics like food, housing, medical care, and heating?Somewhat hard09/03/2023 PHQ-2AnswerDate RecordedPatient Health Questionnaire-2 Scmqt73508/11/2024Fin[facility] - Occupational Stress QuestionnaireAnswerDate RecordedDo you feel stress - tense, restless, nervous, or anxious, or unable to sleep at night because yourmind is troubled all the time - these days?Rather much09/03/2023Exercise Vital SignAnswerDate RecordedOn average, how many days per week do you engage in moderate to strenuous exercise (like a brisk walk)?0 days09/03/2023On average, how many minutes do you engage in exercise at this level?0 min09/03/2023Hunger Vital SignAnswerDate RecordedWithin the past 12 months, you worried that your food would run out before you got the money to buy more.Sometimes true09/03/2023Within the past 12 months, the food you bought just didn't last and you didn't have money to get more.Patient fwfohies00/05/2024 PRAPARE - TransportationAnswerDate RecordedIn the past 12 months, has lack of transportation kept you from medical appointments or from getting medications?No 09/03/2023In the past 12 months, has lack of transportation kept you from meetings, work, or from getting things needed for daily living?No09/03/2023 Housing Stability Vital SignAnswerDate RecordedIn the last 12 months, was there a time when you were not able to pay the mortgage or rent on time?Yes09/03/2023 In the last 12 months, how many places have you lived?In the last 12 months, was there a time when you did not have a steady place to sleep or slept in [facility] (including now)?No09/03/2023CommentsUnknownSex and Gender InformationValueDate RecordedSex Assigned at DhmetQkcefr83/02/2024 6:11 PM EDT Legal QgjMlftkk68/15/2023 7:06 PM EDTGender XcnwbsqoHoiwaw35/02/2024 6:11 PM EDT Sexual OrientationNot on filedocumented as of this encounter Plan of Treatment Not on file documented as of this encounter Procedures Procedure NamePriorityDate/TimeAssociated DiagnosisCommentsMR ANGIOGRAM HEAD WO IV PTTKVWXZZrdyoql98/11/2025 2:41 PM EST Fibromuscular dysplasia of both carotid arteries Acute intractable headache, unspecified headache type documented in this encounter Results * MR angiogram head wo IV contrast (07/09/2025 2:41 PM EST)Anatomical Region LateralityModalityHead, NeckMagnetic ResonanceSpecimen (Source)Anatomical Location / LateralityCollection Method / VolumeCollection TimeReceived Time 07/10/2025 12:38 PM EST Impressions 07/10/2025 12:47 PM EST No evidence for significant stenosis or aneurysm. Possible beaded appearance of the proximal ACAs. ELECTRONICALLY SIGNED BY: Gerardo Lee MD Narrative 07/10/2025 12:47 PM EST EXAMINATION/TECHNIQUE: MR ANGIOGRAM HEAD WO IV CONTRAST, routine MRA of the head with 3D nlmr-ef-febiar images and dedicated 3D reconstructions. HISTORY: Abnormal CTA. Possible fibromuscular dysplasia. Headache. COMPARISON: CTA 06/07/2024. RESULT: INTRACRANIAL MRA RESULTS: ?? Single axial T2 sequence of the brain is unremarkable for acute process within limitations of the single sequence. Distal ICAs, proximal ACAs, and proximal MCAs appear patent without evidence for significant stenosis or aneurysm. Distal vertebral arteries appear patent with the left side dominant. Basilar artery,proximal whizzer operator appear patent without evidence for significant stenosis or aneurysm. Possible beaded appearance of the proximal ACAs, which could be artifactual secondary to motion/tortuosity, or couldbe seen with fibromuscular dysplasia. Procedure Note Gerardo Lee MD - 07/10/2025 EXAMINATION/TECHNIQUE: MR ANGIOGRAM HEAD WO IV CONTRAST, routine MRA ofthe head with 3D ewjn-ly-npajde images and dedicated 3D reconstructions. HISTORY: Abnormal CTA. Possible fibromuscular dysplasia. Headache. COMPARISON: CTA 06/07/2024. RESULT: INTRACRANIAL MRA RESULTS: Single axial T2 sequence of the brain is unremarkable for acute processwithin limitations of the single sequence. Distal ICAs, proximal ACAs, and proximal MCAs appear patent withoutevidence for significant stenosis or aneurysm. Distal vertebral arteriesappear patent with the left side dominant. Basilar artery, proximal PCAsappear patent without evidence for significant stenosis or aneurysm.Possible beaded appearance of the proximal ACAs, which could beartifactual secondary to motion/tortuosity, or could be seen withfibromuscular dysplasia. IMPRESSION: No evidence for significant stenosis or aneurysm. Possible beadedappearance of the proximal ACAs. ELECTRONICALLY SIGNED BY: Gerardo Lee MD Authorizing ProviderResult TypeResult StatusDaniisrael Poe MDIMYong MRI PROCEDURES Final Result documented in this encounter Visit Diagnoses Diagnosis Fibromuscular dysplasia of both carotid arteries Acute intractable headache, unspecified headache type documented in this encounter Care Teams Team MemberRelationshipSpecialtyStart DateEnd Date Gerardo Poe MD [address] [facility] [address] [place] [address] [facility] - [facility] Gerardo Poe MD [address] [facility] [address] [place] [address] PCP - [facility]10/29/23 Griselda Pittman LPN [address] [facility] [address] [place] [address] 06/08/25documented as of this encounter
--- OUTSIDE RECORDS SUMMARY | 2025-07-16 11:00 | XMS_ITS | Encounter Summary ---
Author Organization [facility] Address [address] [place] [address] Care Team Providers Care Channeler Insole Name Role Phone Gerardo Poe MD Primary Care Provider [phone] Gerardo Poe MD Unavailable Griselda Pittman LPN Unavailable Reason for Visit * ReasonCommentsResultsLAB AND MRA RESULTSHeadache Encounter Details DateTypeDepartmentCare Team (Latest Contact Info)Rybbfcefmfo60/18/2025 11:00 AM ESTOffice Visit [facility] [place] [facility] [address] [place] [id number] Gerardo Poe MD [address] [facility] [address] [place], [place] [id number] Fibromuscular dysplasia of both carotid arteries (Primary Dx); Exposure to viral hepatitis; Acute intractable headache, unspecified headache type Social [...] other ways by your partner or ex-partner?Patient soobbyvs24/05/2024Within the last year, have you been kicked, [...] or relatives? Never09/03/2023How often do you attend mu-ism or yazdanism services?More than 4 times per year09/03/2023o you belong to any clubs or organizations such as mu-ism groups, unions, fraKojami or athletic groups, or school groups?No 09/03/2023How often do you attend meetings of the clubs or organizations you belong to?Patient ucxnfuxb46/05/2024re you , , , , never , or living with a partner?Nlzzoer5309/03/2023UDIT-C AnswerDate RecordedQ1: How often do you have [...] and heating?Somewhat hard09/03/2023 PHQ-2AnswerDate RecordedPatient Health Questionnaire-2 Dpwpl02209/16/2024Fin[facility] [place] of Occupational Health - Occupational Stress QuestionnaireAnswerDate [...] you didn't have money to get more.Patient /05/2024 PRAPARE - TransportationAnswerDate RecordedIn the past 12 [...] steady place to sleep or slept in [facility] (including now)?No09/03/2023CommentsUnknownSex and Gender InformationValueDate RecordedSex Assigned at BamrySbwpof51/02/2024 6:11 PM EDT Legal ErwRwhngf88/15/2023 7:06 PM EDTGender XofqxjflMqwblo60/02/2024 6:11 PM EDT Sexual OrientationNot on filedocumented as of this encounter Last Filed Vital Signs Vital SignReadingTime TakenCommentsBlood Ftukbwcs913/7207/16/2025 11:01 AM EST Cqgoh516607/16/2025 11:01 AM ESTTemperature--Respiratory Rate--Oxygen Saturation 97%07/16/2025 11:01 AM ESTInhaled Oxygen Concentration--Fgpnyu80.6 kg (213 lb) 07/16/2025 11:01 AM ZOKFoomwc716.1 cm (5' 5 )07/16/2025 11:01 AM ESTBody Mass Index35.45109/16/2024 11:01 AM ESTdocumented in this encounter Functional Status * Over the past 2 weeks, how often have you been bothered by any of the following problems?QuestionAnswerDate of AssessmentAuthorLittle interest or pleasure in doing thingsNot at all07/16/2025 11:08 AM Vernell Gonzalez LPN Feeling down, depressed, or hopelessNot at all07/16/2025 11:08 AM Vernell Gonzalez LPNPatient Health Questionnaire-2 Keoez71809/16/2024 11:08 AM Vernell Gonzalez LPN documented as of this encounter Progress Notes * Gerardo Poe MD - 07/16/2025 11:00 AM EST Images from the original note were not included. HPI Results Additional comments: LAB AND MRA RESULTS Last edited by Vernell Lott LPN on 07/16/2025 11:01 AM. Subjective Patient ID: Barbara Ford is a 55 y.o. female who presents for Results (LAB AND MRA RESULTS) and Headache. Pt states she still does have a headache not as severe but persistent Has had some mild nausea with headaches Denies confusion, loss of vision States she has still had a constant headache cold air seems to make her head hurt more-- has been wearing winter head band to keep head warmer and that has helped She saw neuro since last visit she wants her to take naproxen daily for a short period of time, started her on amitriptyline and maxalt Pt would like to make sure those meds are okay to take with her current meds She did try a 50mg ubrelvy once and states it helped a little She went to vascular surg for consult no meds changed and had carotid US done today- everything looked good with carotids per pt Vascualr surg suggested PCP maybe get an MRI of neck and head Vascular dr is calling neurology to move pt appt up sooner they had her sched for aug 2025 Headache Over the past 2 weeks, how often have you been bothered by any of the following problems? Little interest or pleasure in doing things: Not at all Feeling down, depressed, or hopeless: Not at all Patient Health Questionnaire-2 Score: 0 Current Outpatient Medications on File Prior to Visit Medication Sig Dispense Refill amitriptyline (Elavil) 25 MG tablet Take 25 mg by mouth at bedtime ASPIRIN 81 PO Aspirin FLUoxetine (PROzac) 20 MG capsule TAKE 1 CAPSULE BY MOUTH EVERY DAY 100 capsule 3 LORazepam (Ativan) 0.5 MG tablet Take 1 tablet (0.5 mg) by mouth every 8 (eight) hours if needed for anxiety 30 tablet 1 metoprolol succinate XL (Toprol-XL) 50 MG 24 hr tablet Take 1 tablet (50 mg) by mouth Daily 100 tablet 3 naproxen sodium (Anaprox) 550 MG tablet Take 550 mg by mouth Daily omeprazole OTC (PriLOSEC OTC) 20 MG EC tablet TAKE 1 TABLET BY MOUTH ONE TIME A DAY for 90 rizatriptan (Maxalt) 10 MG tablet Take 10 mg by mouth 1 (one) time if needed for migraine tiZANidine (Zanaflex) 4 MG tablet Take 1 tablet (4 mg) by mouth every 6 (six) hours if needed for muscle spasms 30 tablet 2 No current facility-administered medications on file prior to visit. I have reviewed and reconciled the history and medication list with the patient today. Allergies Allergen Reactions Iodinated Contrast Media Other Reaction(s): itching rash Magnesium Diarrhea Moxifloxacin Unknown Sulfamethoxazole Other Reaction(s): Fever, Hives Sulfamethoxazole-Trimethoprim Other Reaction(s): other Trimethoprim Other Reaction(s): Fever, Hives Iodine Rash Social History Tobacco Use Smoking status: Former Current packs/day: 0.00 Types: Cigarettes Quit date: 07/30/2013 Years since quittin.9 Smokeless tobacco: Never Substance Use Topics Alcohol use: Never Comment: caffeine 1-2 cups/day Drug use: Never Family History Problem Relation Name Age of Onset Migraines Mother Irritable bowel syndrome Mother Diabetes Mother Hypertension Mother Mental illness Mother Other (melanoma on back) Father Heart disease Father Stroke Father Cancer Father Hypertension Paternal Grandmother Diabetes Paternal Grandfather Heart disease Paternal Grandfather Stroke Paternal Grandfather Past Medical History: Diagnosis Date A-fib (HCC) Allergies Anxiety COVID-19 05/18/2021 Depression Fibrosclerosis of breast Heart aneurysm HTN (hypertension) IBS (irritable bowel syndrome) Impaired glucose tolerance test Migraine headache Non-alcoholic fatty liver disease Panic disorder without agoraphobia Pure hypercholesterolemia Seizure (HCC) Past Surgical History: Procedure Laterality Date CHOLECYSTECTOMY HEART CATH MR ANGIOGRAM HEAD WO IV CONTRAST 07/09/2025 MR ANGIOGRAM HEAD WO IV CONTRAST 07/09/2025 [facility] WISDOM TOOTH EXTRACTION Visit Vitals Ht 5' 5 BMI 35.28 kg/m?? Smoking Status Former BSA 2.1 m?? Review of Systems Neurological: Positive for headaches. Objective Physical Exam Constitutional: General: She is not in acute distress. Appearance: She is well-developed. She is obese. HENT: Head: Normocephalic and atraumatic. Eyes: General: No scleral icterus. Conjunctiva/sclera: Conjunctivae normal. Cardiovascular: Rate and Rhythm: Normal rate and regular rhythm. Heart sounds: Normal heart sounds. No murmur heard. Pulmonary: Effort: Pulmonary effort is normal. No respiratory distress. Breath sounds: Normal breath sounds. No wheezing, rhonchi or rales. Skin: General: Skin is warm and dry. Neurological: General: No focal deficit present. Mental Status: She is alert and oriented to person, place, and time. Psychiatric: Mood and Affect: Mood normal. Behavior: Behavior normal. Telephone on 07/09/2025 Component Date Value Ref Range Status HEPATITIS B SURFACE ANTIBODY QL 07/09/2025 NON-REACTIVE NON-REACTIVE Final Office Visit on 07/02/2025 Component Date Value Ref Range Status HEPATITIS A IGM 07/09/2025 NON-REACTIVE NON-REACTIVE Final Comment: For additional information, please refer to http://Phybridge.Innotech Solar/faq/UQI612 (This link is being provided for informational/ educational purposes only.) HEPATITIS B SURFACE ANTIGEN 07/09/2025 NON-REACTIVE NON-REACTIVE Final Comment: For additional information, please refer to http://Beats Music/faq/QCH404 (This link is being provided for informational/ educational purposes only.) HEPATITIS B CORE ANTIBODY (IGM) 07/09/2025 NON-REACTIVE NON-REACTIVE Final Comment: For additional information, please refer to http://Phybridge.Innotech Solar/faq/ZQC779 (This link is being provided for informational/ educational purposes only.) HEPATITIS C ANTIBODY 07/09/2025 NON-REACTIVE NON-REACTIVE Final Comment: HCV antibody was non-reactive. There is no laboratory evidence of HCV infection. In most cases, no further action is required. However, if recent HCV exposure is suspected, a test for HCV RNA (test code 33386) is suggested. For additional information please refer to http://education.FrameBuzz.Clinverse/faq/SLY76k0 (This link is being provided for informational/ educational purposes only.) Creatinine 07/09/2025 0.63 0.50 - 1.03 mg/dL Final EGFR 07/09/2025 103 > OR = 60 mL/min/1.73m2 Final Hemoglobin A1C 07/02/2025 6.0 Final Assessment/Plan Diagnoses and all orders for this visit: Fibromuscular dysplasia of both carotid arteries - MRA discussed. Essentially normal except possibly the ELLE. - Seeing Vascular Surgery Exposure to viral hepatitis - Hepatitis panel, acute; Future Acute intractable headache, unspecified headache type - Seeing Dr Izaguirre has f/up - This office visit was spent in consultation regarding the patient's current medical problems, differential diagnoses, testing/imaging results, and treatment options. Greater than 25 minutes was spent in ozjt-zj-ncww consultation and coordination of care. No follow-ups on file. documented in this encounter Plan of Treatment NameTypePriorityAssociated DiagnosesOrder ScheduleHepatitis panel, acuteLab Routine Exposure to viral hepatitis Expected: 07/30/2025 (Approximate), Expires: 07/16/2026documented as of this encounter Visit Diagnoses Diagnosis Fibromuscular dysplasia of both carotid arteries- Primary Exposure to viral hepatitis Acute intractable headache, unspecified headache type documented in this encounter Care Teams Team MemberRelationshipSpecialtyStart DateEnd Date Gerardo Poe MD [address] [facility] [address] [place] [address] PCP - GeneralInternal Medicine12/05/22 Gerardo Poe MD [address] [facility] [address] [place] [address] PCP - [employer]10/29/23 Griselda Pittman LPN [address] [facility] [address] [place] [address] 06/08/25documented as of this encounter
--- OUTSIDE RECORDS SUMMARY | 2025-07-20 07:09 | XMS_ITS | Patient Health Record ---
Author Organization [facility] Address [address] [address] Care Team Providers Care Payroll Consultant Name Role Phone Catalina Danielson Primary Care Provider [phone] Angel Schultz Unavailable [phone] CATALINA DANIELSON MD Unavailable Unavailable Allergies Allergen (clinical drug ingredient) Drug/Non Drug Allergy documented on EMR Reaction Allergy Type Onset Date Status Substance with sulfonamide s tructure and antibacterial mechanism of action (substance) Sulfa Antibiotics Unknown Drug Allergy Active Reason For Referral No Information Medications Medication SIG (Take, Route, Frequency, Duration) Notes Start Date End Date Status oxyCODONE-Acetaminophen 5-325 MG Tablet 1 tablet as needed Orally every 6 hrs; Duration: 7 days 07/16/2024ctiveCephalexin 500 MG Tablet1 tablet Orally Four times a day; Duration: 5 day(s)07/16/2024ctivePROzacActivePromethazine HCl 12.5 MG Tablet1 tablet as needed Orally every 6 hrs; Duration: 5 day(s)07/16/2024ctive Metoprolol Succinate ERActiveLORazepamActiveAspirinActive Social History Tobacco Use: Social History Observation Description Date Details (start date - stop date) Never Smoker NA - NA Social History Tobacco Use:Social InfoQuestionAnswerNotesTobacco Use/SmokingAre you anonsmoker Additional DetailsCategorySocial InfoOptionsDetailsDrugs/Alcohol:Do you smoke marijuana?DeniesDo you drink alcohol?No Problems Problem Type SNOMED Code ICD Code Onset Dates Problem Status W/U Status Risk Notes Problem Hypertrophy of breast (966076323 ) Atypical hyperplasia of both breasts (N62) ActiveconfirmedProblemChronic pain (81546015)Other chronic pain (G89.29)Active confirmedProblemMacromastia (288171448)Macromastia (N62)Activeconfirmed Vital Signs Blood pressure diastolic 98 mm Hg 10/22/2024 Zpopcu08 in10/22/2024lood pressure eetbijnx884 mm Hg10/22/20242275Wulbtg229 lbs 10/22/2024BMI32.28 kg/m210/22/2024 Encounters Encounter Location Date Provider Diagnosis [facility] [id number]/ERUM [address] [place] [address] 07/31/2024 Habib Erum Macromastia N62 [facility] [id number]/ERUM [address] [place], [facility] 10/22/2024 Habib Erum Macromastia N62 [facility] Auk4762l/ERUM [address] [place] [address] 08/27/2024 Habib Erum Macromastia N62 [facility] [id number]/ERUM [address] [place] [address] 08/06/2024 Habib Erum Macromastia N62 [facility] [id number]/ERUM [address] [place] [address] 07/24/2024 Habib Erum Macromastia N62 [facility] Iyx2462n/ERUM [address] [place] [address] 07/21/2024 Habib Erum Macromastia N62 [facility] [id number]/ERUM [address] [place] [address] 11/18/2024 Habib Erum [facility] [id number]/[id number] [place] [address]/[facility] [id number]/[id number] [place] [address]/H[facility] Erum Assessments Encounter Date Diagnosis (ICD Code) Assessment Notes Treatment Notes Treatment Clinical Notes Section Notes 07/24/2024 Macromastia (ICD-10 - N62) OK to shower Pathology report was discussed with patient. Please see scanned report Scar management was advised Continue gentle compression 08/27/2024Macromastia (ICD-10 - N62) Continue gentle compression Scar management was advised 10/22/2024Macromastia (ICD-10 - N62) Continue gentle compression Scar management was advised 08/06/2024Macromastia (ICD-10 - N62) Continue gentle compression Scar management was advised 07/21/2024Macromastia (ICD-10 - N62) HJK - D/C dressing OK to shower Continue aggressive compression 07/31/2024Macromastia (ICD-10 - N62) Continue aggressive compression Pathology report was discussed with patient. Please see scanned report Scar management was advised Plan Of Treatment No Information Insurance Providers Payer Name Payer Address Payer Phone Subscriber Number Group Number Insured Name Patient Relationship to Insured Coverage Start Date Coverage End Date DAISHA BARBA [address] [place] [address] [id number] Barbara Edmondson Self - patient is the insured 4 Medical (General) History Medical History History ICD Code anemia diabeticA-fibdepressionanxietySurgical History Surgery Date(Month/Year) GALLBLADDER OUT WISDOM THEETH REMOVALasc PB249611/08/18
--- OUTSIDE RECORDS SUMMARY | 2025-07-20 07:10 | XMS_ITS | Encounter Summary ---
Author Organization [facility] Address [address] [place] [address] Care Team Providers Care High School Industrial Arts Teacher Name Role Phone Gerardo Poe MD Primary Care Provider [phone] Gerardo Poe MD Unavailable [phone] Griselda Pittman LPN Unavailable Encounter Details DateTypeDepartmentCare Team (Latest Contact Info)Uxxbyslvvfv64/11/2025Travel Social History Tobacco UseTypesPacks/DayYears UsedDateSmoking Tobacco: FormerCigarettesQuit: 07/30/2013Smokeless Tobacco: NeverAlcohol UseStandard Drinks/WeekCommentsNever0 (1 standard drink = 0.6 oz pure alcohol)caffeine 1-2 cups/dayHumiliation, Afraid, Rape, and Kick questionnaireAnswerDate RecordedWithin the last year, have you been afraid of your partner or ex-partner?No09/03/2023Within the last year, have you been humiliated or emotionally abused in other ways by your partner or ex-partner?Patient clcybnfs02/05/2024Within the last year, have you been kicked, [...] or relatives? Never09/03/2023How often do you attend confucianist or jain services?More than 4 times per year09/03/2023o you belong to any clubs or organizations such as confucianist groups, unions, fraternal or athletic groups, or school groups?No 09/03/2023How often do you attend meetings of the clubs or organizations you belong to?Patient tkvaprcf59/05/2024re you , , , , never , or living with a partner?Opoexnk9409/03/2023UDIT-C AnswerDate RecordedQ1: How often do you have [...] and heating?Somewhat hard09/03/2023 PHQ-2AnswerDate RecordedPatient Health Questionnaire-2 Bncer16508/11/2024[facility] [place] [facility] - Occupational Stress QuestionnaireAnswerDate [...] you didn't have money to get more.Patient fvntygde55/05/2024 PRAPARE - TransportationAnswerDate RecordedIn the past 12 [...] steady place to sleep or slept in legacy healther (including now)?No09/03/2023CommentsUnknownSex and Gender InformationValueDate RecordedSex Assigned at CrydwOjrftx34/02/2024 6:11 PM EDT Legal ZqnKyafie00/15/2023 7:06 PM EDTGender GlxyfladXlaazj11/02/2024 6:11 PM EDT Sexual OrientationNot on filedocumented as of this encounter Plan of Treatment Not on file documented as of this encounter Visit Diagnoses Not on filedocumented in this encounter Care Teams Team MemberRelationshipSpecialtyStart DateEnd Date Gerardo Poe MD [address] [place] [address] PCP - GeneralInternal Medicine12/05/22 Gerardo Poe MD [address] [place] [address] PCP - [facility]10/29/23 Griselda Pittman LPN [address] [place] [address] 06/08/25documented as of this encounter
--- OUTSIDE RECORDS SUMMARY | 2025-07-20 07:10 | XMS_ITS | Clinical Summary ---
Author Organization [facility] Address [address] [place] [address] Care Team Providers Care News Production Assistant Name Role Phone Gerardo Poe MD Primary Care Provider [phone] Allergies Active AllergyReactionsCriticalityNoted DateCommentsIodinated Contrast Media Hives,IlevptgDrwi39/30/2020MoxifloxacinOther,Ylqgxxs7407/17/2014Sulfa (Sulfonamide Antibiotics)Hives,Other07/17/2014 Fever Sulfamethoxazole-UaibgmppetcbIdaqg75/19/2014TrimethoprimHives,Other05/15/2017 Fever Medications MedicationSigDispense QuantityRefillsLast FilledStart DateEnd DateStatus aspirin 325 mg tablet in the morning.Active FLUoxetine (PROzac) 20 mg capsule fluoxetine 20 mg capsuleActive LORazepam (Ativan) 0.5 mg tablet lorazepam 0.5 mg tablet TAKE 1 TABLET BY MOUTH EVERY EIGHT HOURS NEEDED FOR ANXIETY/ PANIC ATTACKS FOR 30 DAYS07/11/2022ctive metoprolol succinate XL (Toprol-XL) 50 mg 24 hr tablet metoprolol succinate ER 50 mg tablet,extended release 24 hr TAKE 1 TABLET BY MOUTH EVERY DAY05/24/2017Active omeprazole (PriLOSEC) [address] capsule omeprazole 20 mg capsule,delayed release TAKE 1 CAPSULE BY MOUTH EVERY DAYActive rosuvastatin (Crestor) 10 mg tablet rosuvastatin 10 mg tablet TAKE 1 TABLET BY MOUTH ONCE A DAY ON SUNDAY, SUNDAY AND FRIDAYS ONLY.Active Active Problems ProblemNoted DateDiagnosed JxgmLoloqbu82/03/2023atent foramen ovale08/01/2022 Iron deficiency oqmjjg8905/18/2017Chest pain04/20/2014Electrocardiogram abnormal 04/20/2014Tobacco user04/20/20146205Rgftiqypdjyt75/22/2013Obstructive sleep apnea hzoskifj25/19/2012nxiety state01/18/2012trial xksizmitsvac14/21/2012Depressive vkhlxole40/21/2012Fibrocystic disease of sqsngz6301/18/2012Gastroesophageal reflux nbujodk0901/18/2012Migraine with aura01/18/2012 Social History Tobacco UseTypesPacks/DayYears UsedDateSmoking Tobacco: FormerCigarettes Tobacco Cessation:Counseling Given: Not Answered CommentsUnknownSex and Gender InformationValueDate RecordedSex Assigned at BirthNot on fileLegal HnrYlielr65/29/2022 10:22 PM EDTGender IdentityNot on fileSexual OrientationNot on file Last Filed Vital Signs Vital SignReadingTime TakenCommentsBlood Hwabxllq815/80008/16/2021 3:25 PM EST Mekhy238103/28/2019 1:35 PM EDTTemperature--Respiratory Rate--Oxygen Fjqywhjsfk07% 08/16/2021 3:25 PM ESTInhaled Oxygen Concentration--Imapxw90.4 kg (206 lb) 08/16/2021 3:22 PM CQANkhlxf077.1 cm (5' 5 )08/16/2021 3:21 PM ESTBody Mass Index34.28008/16/2021 3:21 PM EST Plan of Treatment Not on file Care Teams Team MemberRelationshipSpecialtyStart DateEnd Gerardo Sumner MD [address] [facility] [address] [place] [address] PCP - General08/01/22
--- OUTSIDE RECORDS SUMMARY | 2025-07-20 07:10 | XMS_ITS | Clinical Summary ---
Author Organization [facility] Address [address] [place] [address] Care Team Providers Care Rubber Turner Name Role Phone Unavailable Primary Care Provider Unavailabl e Social History Tobacco UseTypesPacks/DayYears UsedDateSmoking Tobacco: Never Assessed CommentsUnknownSex and Gender InformationValueDate RecordedSex Assigned at Not on fileLegal TpbSxuwau59/06/2024 8:10 AM ESTGender IdentityNot on fileSexual OrientationNot on file Plan of Treatment Health MaintenanceDue DateLast DoneCommentsHEPATITIS C VIRUS OZKQUVFID1968 HIV SCREENING AVLOBGLATD25/02/1983CERVICAL CANCER SCREENING KILPFDDEWQ11/02/1989 LIPID OPHUMAHLX03/02/2008MAMMOGRAM SCREENING TGMFIUQLQP51/02/2008COLORECTAL CANCER SCREENING PQPUCRWLMR51/02/2013PNEUMOCOCCAL VACCINE SERIES (1 of 1 - PCV) 2018ZOSTER (SHINGLES) VACCINE (1 of 2)2018COVID-19 VACCINE (1 - 2024- season)2025INFLUENZA VACCINE (#1)03/30/20253941FCMTACV70/26/2029 05/24/2019TDAP (ADULT)Ihwciolvs01/26/2019HEP B YNQMWRIQvhmqkdec17/07/2022, 02/03/2022, 12/30/2021, Additional history exists
--- OUTSIDE RECORDS SUMMARY | 2025-07-20 07:10 | XMS_ITS | Encounter Summary ---
Author Organization [facility] Address [address] [place] [address] Phone Care Team Providers Care Professional Services Consultant Name Role Phone Gerardo Poe MD Primary Care Provider [phone] Reason for Visit * ReasonCommentsMed Refill Encounter Details DateTypeDepartmentCare Team (Latest Contact Info)Rogwbuncqec39/19/2025Refill [facility] [address] [facility] [address] [place] [address] Candida Howell MD [address] [facility] [address] [place], [place] [address] Essential hypertension Social History Tobacco UseTypesPacks/DayYears UsedDateSmoking Tobacco: FormerCigarettesQuit: 2010Smokeless Tobacco: NeverAlcohol UseStandard Drinks/WeekCommentsNever0 (1 standard drink = 0.6 oz pure alcohol)CommentsUnknownSex and Gender InformationValueDate RecordedSex Assigned at BirthNot on fileLegal SexFemale 11/20/2022 12:24 PM EDTGender IdentityNot on fileSexual OrientationNot on file documented as of this encounter Miscellaneous Notes * Telephone Encounter - Holly Nobles CMA - 07/17/2025 3:33 PM EST POV 08/20/25 documented in this encounter Plan of Treatment DateTypeDepartmentCare Team (Latest Contact Info)Xresxgrfimn26/22/2026 10:45 AM ESTOffice Visit [facility] [address] [facility] [address] [place] [address] Candida Howell MD [address] [facility] [address] [place] [address] documented as of this encounter Visit Diagnoses Diagnosis Essential hypertension Unspecified essential hypertension documented in this encounter Care Teams Team MemberRelationshipSpecialtyStart DateEnd Date Gerardo Poe MD [address] [facility] [address] [place] [address] PCP - General01/08/23documented as of this encounter
--- OUTSIDE RECORDS SUMMARY | 2025-07-20 07:10 | XMS_ITS | Encounter Summary ---
Author Organization [facility] Address [address] [place] [address] Care Team Providers Care Financial Rep Name Role Phone Gerardo Poe MD Primary Care Provider [phone] Gerardo Poe MD Unavailable Griselda Pittman LPN Unavailable Encounter Details DateTypeDepartmentCare Team (Latest Contact Info)Hqcjhzteliz80/18/2025Travel Social History Tobacco UseTypesPacks/DayYears UsedDateSmoking Tobacco: FormerCigarettesQuit: 07/30/2013Smokeless Tobacco: NeverAlcohol UseStandard Drinks/WeekCommentsNever0 (1 standard drink = 0.6 oz pure alcohol)caffeine 1-2 cups/dayHumiliation, Afraid, Rape, and Kick questionnaireAnswerDate RecordedWithin the last year, have you been afraid of your partner or ex-partner?No09/03/2023Within the last year, have you been humiliated or emotionally abused in other ways by your partner or ex-partner?Patient rzuicebr97/05/2024Within the last year, have you been kicked, [...] or relatives? Never09/03/2023How often do you attend hinduism or jewish services?More than 4 times per year09/03/2023o you belong to any clubs or organizations such as hinduism groups, unions, fraternal or athletic groups, or school groups?No 09/03/2023How often do you attend meetings of the clubs or organizations you belong to?Patient lzslnbki63/05/2024re you , , , , never , or living with a partner?Gdzekmd3109/03/2023UDIT-C AnswerDate RecordedQ1: How often do you have [...] and heating?Somewhat hard09/03/2023 PHQ-2AnswerDate RecordedPatient Health Questionnaire-2 Ecpuq50409/16/2024[facility] [place] [facility] - Occupational Stress QuestionnaireAnswerDate [...] steady place to sleep or slept in [facility] (including now)?No09/03/2023CommentsUnknownSex and Gender InformationValueDate RecordedSex Assigned at DfhywDhebye42/02/2024 6:11 PM EDT Legal RajJllvkz17/15/2023 7:06 PM EDTGender RuoodwscPjhmmk38/02/2024 6:11 PM EDT Sexual OrientationNot on filedocumented as of this encounter Plan of Treatment Not on file documented as of this encounter Visit Diagnoses Not on filedocumented in this encounter Care Teams Team MemberRelationshipSpecialtyStart DateEnd Date Gerarod Poe MD [address] [place] [address] PCP - GeneralInternal Medicine12/05/22 Gerardo Poe MD [address] [place] [address] PCP - [facility]10/29/23 Griselda Pittman LPN [address] [place] [address] 06/08/25documented as of this encounter
--- OUTSIDE RECORDS SUMMARY | 2025-07-20 07:10 | XMS_ITS | Encounter Summary ---
Author Organization [facility] Address [address] [place] [address] Care Team Providers Care Washing Machine Assembler Name Role Phone Gerardo Poe MD Primary Care Provider [phone] Gerardo Poe MD Unavailable [phone] Griselda Pittman LPN Unavailable Encounter Details DateTypeDepartmentCare Team (Latest Contact Info)Hijdanqoydx70/08/2025Patient Outreach [facility] [address] [place] [address] Griselda Pittman LPN [address] [place] [address] Social History Tobacco UseTypesPacks/DayYears UsedDateSmoking Tobacco: FormerCigarettesQuit: 07/30/2013Smokeless Tobacco: NeverAlcohol UseStandard Drinks/WeekCommentsNever0 (1 standard drink = 0.6 oz pure alcohol)caffeine 1-2 cups/dayHumiliation, Afraid, Rape, and Kick questionnaireAnswerDate RecordedWithin the last year, have you been afraid of your partner or ex-partner?No09/03/2023Within the last year, have you been humiliated or emotionally abused in other ways by your partner or ex-partner?Patient glmsfzci54/05/2024Within the last year, have you been kicked, [...] or relatives? Never09/03/2023How often do you attend mandaeism or tenriism services?More than 4 times per year09/03/2023o you belong to any clubs or organizations such as mandaeism groups, unions, fraripplrr inc or athletic groups, or school groups?No 09/03/2023How often do you attend meetings of the clubs or organizations you belong to?Patient iucfpdru65/05/2024re you , , , , never , or living with a partner?Vmhaqbt0909/03/2023UDIT-C AnswerDate RecordedQ1: How often do you have [...] and heating?Somewhat hard09/03/2023 PHQ-2AnswerDate RecordedPatient Health Questionnaire-2 Dmcgh65508/11/2024[facility] [place] of Occupational Health - Occupational Stress QuestionnaireAnswerDate [...] you didn't have money to get more.Patient hfterdmy65/05/2024 PRAPARE - TransportationAnswerDate RecordedIn the past 12 [...] steady place to sleep or slept in ashelter (including now)?No09/03/2023CommentsUnknownSex and Gender InformationValueDate RecordedSex Assigned at OksozOydgdw70/02/2024 6:11 PM EDT Legal SdkUovxcv68/15/2023 7:06 PM EDTGender OqcjzgxvXhfwre72/02/2024 6:11 PM EDT Sexual OrientationNot on filedocumented as of this encounter Progress Notes * Griselda Pittman LPN - 07/06/2025 8:53 AM EST Spoke to pt for outreach. Pt states she is doing ok. Pt does have billing question. I let her know that I apologize, however I do not have any access or information regarding billing. She states she will call billing department later. Pt has MR angiogram of head scheduled for . Asks rewriter if dye will be used because pt has allergy to contrast dye. I let pt know that order says without contrast. Aware of follow up appt scheduled 07/16. Denies any needs or concerns at this time. documented in this encounter Plan of Treatment Not on file documented as of this encounter Visit Diagnoses Diagnosis Type 2 diabetes mellitus with other specified complication, without long-term current use of insulin (HCC)- Primary Benign essential hypertension Essential hypertension, benign documented in this encounter Care Teams Team MemberRelationshipSpecialtyStart DateEnd Date Gerardo Poe MD [address] [facility] [address] [place] [address] PCP - GeneralInternal Medicine12/05/22 Gerardo Poe MD [address] [facility] [address] [place] [address] PCP - [facility]10/29/23 Griselda Pittman LPN [address] [facility] [address] [place] [address] 06/08/25documented as of this encounter
--- OUTSIDE RECORDS SUMMARY | 2025-07-20 07:10 | XMS_ITS | Clinical Summary ---
Author Organization [facility] Address [address] [place] [address] Care Team Providers Care Auto Technician Name Role Phone Gerardo Poe MD Primary Care Provider Gerardo Poe MD Unavailable [phone] Griselda Pittman LPN Unavailable Allergies Active AllergyReactionsCriticalityNoted DateCommentsIodinated Contrast Media 08/02/2023 Other Reaction(s): itching rash FgnheqVjumEbw14/22/0440CjncokxvzFwwmpwmz38/27/5548PimgwhuxbhawIlvgwhq39/04/2024 Cmbvsxjpgegqosls32/04/2024 Other Reaction(s): Fever, Hives Sulfamethoxazole-Fxbcsmnjqhoz94/19/2014 Other Reaction(s): other Nfngecqofger74/04/2024 Other Reaction(s): Fever, Hives Medications MedicationSigDispense QuantityRefillsLast FilledStart DateEnd DateStatus omeprazole OTC (PriLOSEC OTC) 20 MG EC tablet TAKE 1 TABLET BY MOUTH ONE TIME A DAY for 90Active metoprolol succinate XL (Toprol-XL) 50 MG 24 hr tablet Indications:Panic attacksTake 1 tablet (50 mg) by mouth Daily 100 tablet 4Active ASPIRIN 81 PO AspirinActive LORazepam (Ativan) 0.5 MG tablet Indications:Panic attacksTake 1 tablet (0.5 mg) by mouth every 8 (eight) hours if needed for anxiety 30 tablet 5Active tiZANidine (Zanaflex) 4 MG tablet Indications:Acute intractable headache, unspecified headache type,Fibromuscular dysplasia of both carotid arteriesTake 1 tablet (4 mg) by mouth every 6 (six) hours if needed for muscle spasms 30 tablet 5Active FLUoxetine (PROzac) 20 MG capsule Indications:Moderate episode of recurrent major depressive disorder (HCC)TAKE 1 CAPSULE BY MOUTH EVERY DAY 100 capsule 5Active naproxen sodium (Anaprox) 550 MG tablet Take 550 mg by mouth Daily07/07/2025tive amitriptyline (Elavil) 25 MG tablet Take 25 mg by mouth at agdvckd05/09/2025Active rizatriptan (Maxalt) 10 MG tablet Take 10 mg by mouth 1 (one) time if needed for lcjkkued25/09/2025Active FLUoxetine (PROzac) 20 MG capsule Indications:Moderate episode of recurrent major depressive disorder (HCC)Take 1 capsule (20 mg) by mouth Daily 100 capsule Discontinued Active Problems ProblemNoted DateDiagnosed YjwkEfxrkssbh62/13/4533Estldr87/13/2025OVID-19 06/11/20256084Nomyxghg00/13/2025Hypertrophy of vejaln3206/11/2025IBS (irritable bowel syndrome)06/11/20254480Xyjvckenouh13/13/5456Cexhbxlsv99/13/2025Non-alcoholic fatty liver qhyyvcf7606/11/2025Pure /13/2025Reflux gastritis 06/11/20257342Ksgweqj44/13/2025Fibromuscular dysplasia of both carotid arteries 06/11/2025Former akyyor0707/07/2024re-operative cardiovascular examination 07/07/20242763Izuijlk91/24/2024Other acquired deformities of right foot04/28/2024 Abnormal mammogram of right dyqezm1704/28/20243017Hiihsvhthp70/30/2024neurysm of heart08/02/2023nxiety about bsobjd2708/02/2023sthmatic aycjuplait94/04/2024 Benign essential tpmajgbloxlr77/04/2024hronic fatigue, rqtwxceteie97/04/2024 Chronic nonalcoholic liver uhrzfct6708/02/2023epressive voghpmxu92/04/2024 Electrocardiogram pijvbdex35/04/2024Fibrosclerosis of fqxsvv0208/02/2023Impaired glucose /04/2024Intractable migraine with aura08/02/2023Iron deficiency bgigbc2408/02/2023Mixed aslbbhzfmpprcc60/04/2024Moderate episode of recurrent major depressive azpwtbkz89/04/2024Obesity (BMI 30-39.9)08/02/2023 Other acquired deformities of left foot08/02/2023Other chronic pain08/02/2023 Decrpgclwgod62/04/2024anic disorder with kbdcrupnqim35/04/2024anic disorder without agoraphobia with moderate panic myfjxrp0708/02/20230771Dxndkzkhvoecw95/04/2024 Primary localized osteoarthrosis of ankle and foot08/02/2023rimary osteoarthritis of both knees08/02/2023Type 2 diabetes mellitus with other specified ybsvffmhtsms24/04/2024atent foramen ovale ([facility]-HCC)3Chest pain04/20/2014Obstructive sleep apnea gtfmcehl97/19/2012Fibrocystic disease of aamcdk6501/18/2012Gastroesophageal reflux pvshprk0201/18/2012trial fibrillation 01/18/2012 Overview (04/28/2024): NORMAL SINUS TODAY Encounters DateTypeDepartmentCare CbjzHerxdxewejd09/18/2025 11:00 AM ESTOffice Visit [facility] [address] [place] [address] Gerardo Poe MD Fibromuscular dysplasia of both carotid arteries (Primary Dx); Exposure to viral hepatitis; Acute intractable headache, unspecified headache type07/16/2025amboo flowsheet [facility] [address] [place] [address] Gerardo Poe MD 07/16/20256802Pplytq44/11/2025 2:00 PM ESTAncillary Procedure [facility] [address] [place] [phone] Fibromuscular dysplasia of both carotid arteries; Acute intractable headache, unspecified headache type07/09/20258377Kuogqk48/11/2025 Telephone [facility] [address] [place] [address] Gerardo Poe MD Lab Icvqfr2007/07/2025bstract [facility] [address] [place] [address] Gerardo Poe MD 07/06/2025bstract [facility] [address] [place] [address] Gerardo Poe MD 07/06/2025Patient Outreach [facility] [address] [place] [address] Griselda Pittman, CLERICAL DENTIST ASSISTANT 07/03/2025bstract [facility] [address] [place] [address] Gerardo Poe MD 07/02/2025 11:15 AM ESTOffice Visit [facility] [address] [place] [address] Gerardo Poe MD Fibromuscular dysplasia of both carotid arteries (Primary Dx); Acute intractable headache, unspecified headache type; Exposure to viral hepatitis; Impaired glucose fxfywwidr17/04/2025amboo flowsheet [facility] [address] [facility] [address] [place] [address] Gerardo Poe MD 07/02/20251617Qdwuir55/25/2025Refill [facility] [address] [place] [address] Gerardo Poe MD Moderate episode of recurrent major depressive disorder (HCC)06/22/2025bstract [facility] [address] [place] [address] Gerardo Poe MD 06/19/2025bstract [facility] [address] [place] [address] Gerardo Poe MD 06/19/2025bstract [facility] [address] [facility] [address] [place] [address] Gerardo Poe MD 06/18/2025bstract [facility] [address] [place] [address] Gerardo Poe MD 06/17/2025bstract [facility] [address] [place] [address] Gerardo Poe MD 06/17/2025bstract [facility] [address] [facility] [address] [place] [address] Gerardo Poe MD 06/15/2025 3:30 PM ESTOffice Visit [facility] [address] [facility] [address] [place] [address] Gerardo Poe MD Acute intractable headache, unspecified headache type (Primary Dx); Fibromuscular dysplasia of both carotid arteries; Anxiety about health; Panic attacks; Seizure disorder (HCC)06/15/20256256Yselxi49/13/2025 11:00 AM ESTOffice Visit [facility] [address] [facility] [address] [place] [address] Nicole Barnes PA Benign essential hypertension (Primary Dx); Anxiety about health; Fibromuscular dysplasia of both carotid arteries; Acute intractable headache, unspecified headache type06/11/2025amboo flowsheet [facility] [address] [facility] [address] [place] [address] Nicole Barnes PA 06/11/20253943Dkyxlc22/12/2025Telephone [facility] [address] [facility] [address] [place] [address] Gerardo Poe MD off work unnpnyt9506/08/2025Patient Outreach [facility] [address] [place] [address] Griselda Pittman LPN 06/08/2025Patient Outreach [facility] [address] [place] [address] Zain GriseldaNIHARIKA 06/08/2025bstract [facility] [address] [place] [address] Gerardo Poe MD 06/08/2025bstract [facility] [address] [place] [address] Gerardo Poe MD 05/19/2025[facility]ill [facility] [address] [place] [address] Gerardo Poe MD Panic attacksfrom Last 3 Months Immunizations ImmunizationAdministration DatesNext DueHep B, Adolescent or Emfhuulyo49/07/2022 ,11/06/2005Hep B, adult02/03/2022,12/30/2021,05/10/2005,04/10/2005Rabies - IM Fibroblast Lbttvef0706/11/2019,06/04/2019,2019Rabies Immune Globulin 05/28/2019Tdap1 Family History Medical HistoryRelationNameCommentsCancerFatherHeart diseaseFatherStrokeFather melanoma on backFatherDiabetesMotherHypertensionMotherIrritable bowel syndrome MotherMental illnessMotherMigrainesMotherDiabetesPaternal GrandfatherHeart diseasePaternal GrandfatherStrokePaternal GrandfatherHypertensionPaternal GrandmotherRelationNameStatusCommentsDaughterAliveFatherAliveMaternal GrandfatherDeceasedMaternal GrandmotherDeceasedMotherAliveOtherspouseAlive Paternal GrandfatherDeceasedPaternal GrandmotherDeceasedSiblingAlive Social History Tobacco UseTypesPacks/DayYears UsedDateSmoking Tobacco: FormerCigarettesQuit: 07/30/2013Smokeless Tobacco: Never Tobacco Cessation:Counseling Given: Not Answered Alcohol UseStandard Drinks/WeekCommentsNever0 (1 standard drink = 0.6 oz pure alcohol)caffeine 1-2 cups/dayHumiliation, Afraid, Rape, and Kick questionnaire AnswerDate RecordedWithin the last year, have you been afraid of your partner or ex-partner?No09/03/2023Within the last year, have you been humiliated or emotionally abused in other ways by your partner or ex-partner?Patient declined 09/03/2023Within the last year, have you been kicked, hit, slapped, or otherwise physically hurt by your partner or ex-partner?No09/03/2023Within the last year, have you been raped or forced to have any kind of sexual activity by your part ner or ex-partner?No09/03/2023Social Connection and Isolation PanelAnswerDate RecordedIn a typical week, how many times do you talk on the phone with family, friends, or neighbors?Three times a week09/03/2023How often do you get together with friends or relatives?Never09/03/2023How often do you attend quaker or samaritan services?More than 4 times per year09/03/2023o you belong to any clubs or organizations such as quaker groups, unions, fraternal or athletic sandhya ups, or school groups?No09/03/2023How often do you attend meetings of the clubs or organizations you belong to?Patient aeqppezh19/05/2024re you , , , , never , or living with a partner? 09/03/2023UDIT-CAnswerDate RecordedQ1: How often do you have a drink containing alcohol?Never09/03/2023Q2: How many drinks containing alcohol do you have on a typical day when you are drinking?Patient does not drink09/03/2023Q3: How often do you have six or more drinks on one occasion?Never09/03/2023Overall Financial Resource Strain (CARDIA)AnswerDate RecordedHow hard is it for you to pay for the very basics like food, housing, medical care, and heating?Somewhat hard 09/03/2023HQ-2AnswerDate RecordedPatient Health Questionnaire-2 Score0 07/16/2025[facility] [place] [facility] Occupational Health - Occupational Stress QuestionnaireAnswerDate [...] exercise at this level?0 min09/03/2023Hunger Vital SignAnswerDate Recorded Within the past 12 months, you worried that your food would run out before you got the money to buymore.Sometimes true09/03/2023Within the past 12 months, the food you bought just didn't last and you didn't have money to get more.Patient ksmxwhao84/05/2024RAPARE - TransportationAnswerDate RecordedIn the past 12 months, has lack of transportation kept you from medical appointments or from getting medications?No09/03/2023In the past 12 months, has lack of transportation kept you from meetings, work, or from getting things needed for daily living?No09/03/2023Housing Stability Vital SignAnswerDate RecordedIn the last 12 months, was there a time when you were not able to pay the mortgage or rent on time?Yes09/03/2023In the last 12 months, how many places have you lived? In the last 12 months, was there a time when you did not have a steady place to sleep or slept in [place] (including now)?No09/03/2023 CommentsUnknownSex and Gender InformationValueDate RecordedSex Assigned at Hicvxl6201/29/2024 6:11 PM EDTLegal WnvGhybrf99/15/2023 7:06 PM EDTGender Identity Gtheta2001/29/2024 6:11 PM EDTSexual OrientationNot on file Last Filed Vital Signs Vital SignReadingTime TakenCommentsBlood Cqbzpvhy265/7207/16/2025 11:01 AM EST Qnouy888907/16/2025 11:01 AM ZCHJlhzcixhahe60.7 ??C (98 ??F)08/24/2024 11:16 AM ESTRespiratory Pagr598408/11/2024 11:08 AM ESTOxygen Uwgjjiampj59%07/16/2025 11:01 AM ESTInhaled Oxygen Concentration--Byrnbm40.6 kg (213 lb)07/16/2025 11:01 AM YGGPwbajg837.1 cm (5' 5 )07/16/2025 11:01 AM ESTBody Mass Index35.45109/16/2024 11:01 AM EST Plan of Treatment Health MaintenanceDue DateLast DoneCommentsCT Wmgfazrsehov1968FIT-DNA 1968FIT1970FOBT1970 0291Pncnsixmjuveh1968Diabetes: Retinopathy Mhljpckwh99/02/1978Pneumococcal Vaccine: Pediatrics (0 to 5 Years) and At-Risk Patients (6 to 64 Years) (1 of 2 - PCV)1987Pap Smear1989 Cervical Cancer Vvnvaayiy72/02/1998HPV/Ldavrw2805/31/19986276Cirpwxibe33/09/2025 03/07/2024, 12/22/2022, 12/22/2022, Additional history existsCOVID-19 Vaccine ( - season)2025Influenza Vaccine (#1)2025Diabetes: Hemoglobin A1C/10/2024, 01/09/2025, 05/30/2024, Additional history exists Diabetes: Urine Protein Mcdsulqhy65/, 01/29/2024olonoscopy Colorectal Cancer Bkwikopwd60/07/2027 Procedures Procedure NamePriorityDate/TimeAssociated DiagnosisCommentsMR ANGIOGRAM HEAD WO IV FSEYJDOUApaexhg83/11/2025 2:41 PM EST Fibromuscular dysplasia of both carotid arteries Acute intractable headache, unspecified headache type HEPATITIS B SURFACE ANTIBODY YXUcdeiow15/11/2025 1:09 PM EST Exposure to viral hepatitis MRLYJOHYYZUzuaunm38/11/2025 1:09 PM EST Fibromuscular dysplasia of both carotid arteries Acute intractable headache, unspecified headache type HEPATITIS PANEL, PDQBHNsaowop00/11/2025 1:09 PM EST Exposure to viral hepatitis POCT GLYCATED HEMOGLOBIN, RLFFHJvawive88/04/2025 12:39 PM EST Impaired glucose tolerance MICROALBUMIN / CREATININE URINE DODSAXzepxdb01/13/2025 11:44 AM EDT Longstanding persistent atrial fibrillation (HCC) Impaired glucose tolerance Benign essential hypertension MM TOMOSYNTHESIS SCREENING BI03/07/2024 2:27 PM EDT SSVVPMTGGEQRlvzuks75/07/2017 12:00 PM EST from Last 3 Months or Most Recently Relevant to Health Maintenance Results * MR angiogram head wo IV [...] routine MRA of the head with 3D tqsg-lr-ispuoz images and dedicated 3D reconstructions. HISTORY: Abnormal [...] with the left side dominant. Basilar artery,proximal salesperson burial needs appear patent without evidence for significant stenosis or aneurysm. Possible beaded appearance of the proximal ACAs, which could be artifactual secondary to motion/tortuosity, or couldbe seen with fibromuscular dysplasia. Procedure Note Gerardo Lee MD - 07/10/2025 EXAMINATION/TECHNIQUE: MR ANGIOGRAM HEAD WO IV CONTRAST, routine MRA ofthe head with 3D shcq-dn-nrdxit images and dedicated 3D reconstructions. HISTORY: Abnormal [...] of the proximal ACAs. ELECTRONICALLY SIGNED BY: Gerrado Lee MD Authorizing ProviderResult TypeResult StatusDaniisrael Poe MDIMYong MRI PROCEDURES Final Result * Hepatitis panel, acute (07/09/2025 1:09 PM EST)ComponentValueRef RangeTest MethodAnalysis TimePerformed AtPathologist SignatureHEPATITIS A IGM VOA-SPRQCIQUIXB-QQPMOBSWLZRHZIrhmkms: For additional information, please refer to http://[employer]CEYX/faq/XAV088 (This link is being provided for informational/ educational purposes only.) HEPATITIS B SURFACE RLNAOOVSPY-MCDXOHZHSCW-DOIFYVFCWQFWPZsdospg: For additional information, please refer to http://[employer]/faq/GLM070 (This link is being provided for informational/ educational purposes only.) HEPATITIS B CORE ANTIBODY (IGM)BVS-VIQYVNHNNPW-MVFKTKUAECQNQOdyidjx: For additional information, please refer to http://[employer]/faq/VWN759 (This link is being provided for informational/ educational purposes only.) HEPATITIS C EYYEHBAZGQV-WWTSHPBMHOY-IQAPXXHHQTLQYPbvbzvq: HCV antibody was non-reactive. There is no laboratory evidence of HCV infection. In most cases, no further action is required. However, if recent HCV exposure is suspected, a test for HCV RNA (test code 07768) is suggested. For additional information please refer to http://[employer]CEYX/faq/DNI54k7 (This link is being provided for informational/ educational purposes only.) Specimen (Source)Anatomical Location / LateralityCollection Method / Volume Collection TimeReceived TimeBloodVenous blood specimen / Gybuzyo6407/09/2025 1:09 PM EST07/09/2025 1:09 PM EST Narrative Resulting Agency Comment Performing Organization Information ?Site ID: QPT ?Name: [facility] ?Address: [address] [place] [address], [address] [place] [address] ?Director: Tashi Osborne MD Authorizing ProviderResult TypeResult StatusGerardo FAGAN BLOOD ORDERABLESFinal ResultPerforming OrganizationAddSaint John Vianney Hospitalty/[facility] CodePhone Number [facility] * Creatinine, Serum (07/09/2025 1:09 PM EST)ComponentValueRef RangeTest Method Analysis TimePerformed AtPathologist SignatureCreatinine0.630.50 - 1.03 mg/dL WKNOAXEDR483> OR = 60 mL/min/1.84v5HEGBQTwyrpcat (Source)Anatomical Location / LateralityCollection Method / VolumeCollection TimeReceived TimeBloodVenous blood specimen / Wbwqhrd0407/09/2025 1:09 PM EST07/09/2025 1:09 PM EST Narrative Resulting Agency Comment Performing Organization Information ?Site ID: QPT ?Name: [facility] ?Address: [address] [place] [address] ?Director: Tashi Osborne MD Authorizing ProviderResult TypeResult StatusGerardo FAGAN BLOOD ORDERABLESFinal ResultPerforming OrganizationAddSaint John Vianney Hospitalty/State/ZIP CodePhone Number [facility] * Hepatitis B surface antibody (07/09/2025 1:09 PM EST)ComponentValueRef Range Test MethodAnalysis TimePerformed AtPathologist SignatureHEPATITIS B SURFACE ANTIBODY VETHV-TRKQEWRLFFF-EKOJOUCIPBDBPGfhxmtod (Source)Anatomical Location / LateralityCollection Method / VolumeCollection TimeReceived TimeBloodVenous blood specimen / Atuqulz7207/09/2025 1:09 PM EST07/09/2025 1:09 PM EST Narrative Resulting Agency Comment Performing Organization Information ?Site ID: QPT ?Name: [facility] ?Address: [facility] [address] [place] [address] ?Director: Tashi Osborne MD Authorizing ProviderResult TypeResult StatusGerardo Poe MDLAB BLOOD ORDERABLESFinal ResultPerforming OrganizationAddressCity/State/ZIP CodePhone Number [facility] * POCT Glycated hemoglobin, total (07/02/2025 12:39 PM EST)ComponentValueRef RangeTest MethodAnalysis TimePerformed AtPathologist SignatureHemoglobin A1C 6.0Specimen (Source)Anatomical Location / LateralityCollection Method / Volume Collection TimeReceived YsubHmoue29/04/2025 12:39 PM EST Narrative Authorizing ProviderResult TypeResult Sofy Poe MDPOINT OF CARE TEST ENTER/EDIT ORDERABLESFinal Result * Microalbumin / creatinine, urine ratio (01/09/2025 11:44 AM EDT)ComponentValue Ref RangeTest MethodAnalysis TimePerformed AtPathologist SignatureCREATININE, RANDOM NDLII9251 - 275 mg/dLQUESTALBUMIN, URINE0.2See Note: mg/dLQUESTComment: Reference Range: Reference Range Not established ALBUMIN/CREATININE RATIO, RANDOM URINE4<30 mg/g creatQUESTComment: The ADA defines abnormalities in albumin excretion as follows: Albuminuria Category ?Result (mg/g creatinine) Normal to Mildly increased <30 Moderately increased ? 30-299 Severely increased > OR = 300 The ADA recommends that at least two of three specimens collected within a 3-6 month period be abnormal before considering a patient to be within a diagnostic category. Specimen (Source)Anatomical Location / LateralityCollection Method / Volume Collection TimeReceived TimeUrineUrine specimen obtained by clean catch procedure / Jzulzgd7101/09/2025 11:44 AM EDT01/09/2025 11:46 AM EDT Narrative [facility] - 01/12/2025 1:48 PM EDT FASTING:YES FASTING: YES Resulting Agency Comment Performing Organization Information ?Site ID: QPT ?Name: [facility] ?Address: [facility] [address] [place] [address] ?Director: Tashi Osborne MD Authorizing ProviderResult TypeResult StatusDaniisrael Poe MDLAB URINE ORDERABLESFinal ResultPerforming OrganizationAddressCity/State/ZIP CodePhone Number [facility] * MM TOMOSYNTHESIS SCREENING BI (03/07/2024 2:27 PM EDT)Anatomical Region LateralityModalityOtherSpecimen (Source)Anatomical Location / Laterality Collection Method / VolumeCollection TimeReceived Time03/07/2024 2:27 PM EDT Narrative 03/07/2024 2:28 PM EDT [facility] ?[address] ? [place], [place] [address] ? Mammography Report ? Signed ? Patient: Edmondson,Barbara L ?MR#: [id number] ?? : 1970 ?Acct:[id number] ?? Age/Sex: 53 / F ?ADM Date: 03/07/24 ?? Loc: MAMMO ? Attending DrDavid POE ? Ordering Physician: GERARDO POE ? Results: ? Date of Service: 03/07/24 ?Follow Up: ? Procedure(s): MM tomosynthesis screening BI ?? Accession Number(s): [id number] ? cc: GERARDO POE ? Patient Name: ? BARBARA EDMONDSON ? MR#: [id number] ? : 1970 ? Exam Date: 03/07/2024 ?? Ordering Doctor: DR GERARDO POE M.D. ? RADIOLOGY REPORT ? PROCEDURE: ? MM TOMOSYNTHESIS SCREENING BI ? COMPARISON: ? MG MAMM SCREEN 3D ELDON CAD, 12/22/2022. ??MG MAMM DX 3D RT CAD, ?? 2022. ??MG MAMM ELDON SCRN W CAD DIG, 12/10/2012. ? INDICATIONS: ? Screening ? Calculator Name ? NCI Breast Cancer Risk Assessment Tool ?? 5 Year Breast Cancer Risk ? 1.00% ?? Lifetime Breast Cancer Risk ? 6.70% ?? Personal Breast Cancer ?No ?? Personal Ovarian Cancer ? No ?? Treatments ? None ?? Family Cancers ? Father with lymphoma cancer at age 66; Grandfather-paternal ?? with colon cancer at age 66. ? LOCATION: ? [facility] ? BREAST COMPOSITION: ? The breasts are extremely dense, which lowers the ?? sensitivity of mammography. ? FINDINGS: ? DIAGNOSTIC CATEGORY 1--NEGATIVE. ? RIGHT BREAST: ??No significant suspicious finding. ??No significant change has ?? occurred. ? LEFT BREAST: ??No significant suspicious finding. ??No significant change has ?? occurred. ? RECOMMENDATIONS: ? ROUTINE MAMMOGRAM AND CLINICAL EVALUATION IN 12 MONTHS. ? PLEASE NOTE: ??A NORMAL MAMMOGRAM DOES NOT EXCLUDE THE POSSIBILITY OF BREAST ?? CANCER. ??A CLINICALLY SUSPICIOUS PALPABLE LUMP SHOULD BE BIOPSIED. ? Dictated by: Bebo Garvin M.D. on 03/07/2024 at 14:20 ? Approved by: Bebo Garvin M.D. on 03/07/2024 at 14:27 ? Dictated By: ?Bebo Garvin M.D. ? Signed By: ?03/07/24 1428 ? DD/ 1427 ? TD/TT: ? Truck Driver Instructor: Procedure Note Radiology, Radiologist, - 03/07/[address] [address] Mammography Report Signed Patient: Barbara Edmondson LMR#: [id number] : 1970Acct:[id number] Age/Sex: 53 / FADM Date: 03/07/24 Loc: MAMMO Attending Dr: GERARDO POE Ordering Physician: GERARDO POEResults: Date of Service: 03/07/24Follow Up: Procedure(s): MM tomosynthesis screening BI Accession Number(s): [id number] cc: GERARDO POE Patient Name: BARBARA EDMONDSON MR#: [id number] : 1970 Exam Date: 03/07/2024 Ordering Doctor: DR GERARDO POE M.D. RADIOLOGY REPORT PROCEDURE: MM TOMOSYNTHESIS SCREENING BI COMPARISON: MG MAMM SCREEN 3D ELDON CAD, 12/22/2022. MG MAMM DX 3D RTCAD, 2022. MG MAMM ELDON SCRN W CAD DIG, 12/10/2012. INDICATIONS: Screening Calculator Name NCI Breast Cancer Risk Assessment Tool 5 Year Breast Cancer Risk 1.00% Lifetime Breast Cancer Risk 6.70% Personal Breast Cancer No Personal Ovarian Cancer No Treatments None Family Cancers Father with lymphoma cancer at age 66;Grandfather-paternal with colon cancer at age 66. LOCATION: [facility] BREAST COMPOSITION: The breasts are extremely dense, which lowers the sensitivity of mammography. FINDINGS: DIAGNOSTIC CATEGORY 1--NEGATIVE. RIGHT BREAST: No significant suspicious finding. No significant changehas occurred. LEFT BREAST: No significant suspicious finding. No significant changehas occurred. RECOMMENDATIONS: ROUTINE MAMMOGRAM AND CLINICAL EVALUATION IN 12 MONTHS. PLEASE NOTE: A NORMAL MAMMOGRAM DOES NOT EXCLUDE THE POSSIBILITY OFBREAST CANCER. A CLINICALLY SUSPICIOUS PALPABLE LUMP SHOULD BE BIOPSIED. Dictated by: Bebo Garvin M.D. on 03/07/2024 at 14:20 Approved by: Bebo Garvin M.D. on 03/07/2024 at 14:27 Dictated By: Bebo Garvin M.D. Signed By:03/07/24 1428 DD/ 1427 TD/TT: Truck Driver Instructor: Authorizing ProviderResult TypeResult StatusDaniisrael Poe MDCLINISYNC IMAGING Final Result * Colonoscopy (06/05/2017 12:00 PM EST)Anatomical RegionLateralityModality EndoscopySpecimen (Source)Anatomical Location / LateralityCollection Method / VolumeCollection TimeReceived Time06/05/2017 12:00 PM EST Narrative 06/05/2017 12:00 PM EST PERFORMED AT [facility] LOCATION:[id number] Procedure Note CONVERSION, GENERIC - 12/14/2022 PERFORMED AT [facility] LOCATION:[id number] Authorizing ProviderResult TypeResult StatusDaniisrael Poe MDENDOSCOPY PROCEDURE ORDERABLESFinal Result from Last 3 Months or Most Recently Relevant to Health Maintenance Insurance Care Teams Team MemberRelationshipSpecialtyStart DateEnd Date Gerardo Poe MD [address] [facility] [address] [place] [address] PCP - GeneralInternal Medicine12/05/22 Gerardo Poe MD [address] [facility] [address] [place] [address] PCP - [place] [employer]10/29/23 Griselda Pittman LPN [address] [facility] 110 [place] [address] 06/08/25
--- OUTSIDE RECORDS SUMMARY | 2025-07-20 07:10 | XMS_ITS | Encounter Summary ---
Author Organization [facility] Address [address] [place] [address] Care Team Providers Care Insurance Agents Supervisor Name Role Phone Gerardo Poe MD Primary Care Provider [phone] Gerardo Poe MD Unavailable [phone] Griselda Pittman LPN Unavailable Encounter Details DateTypeDepartmentCare Team (Latest Contact Info)Nryiirpthhp25/18/2025amboo flowsheet [facility] [address] [place] [address] Gerardo Poe MD [address] [facility] [[email or web address] 110 [place], [place] [id number] Social History Tobacco UseTypesPacks/DayYears UsedDateSmoking Tobacco: FormerCigarettesQuit: 07/30/2013Smokeless Tobacco: NeverAlcohol UseStandard Drinks/WeekCommentsNever0 (1 standard drink = 0.6 oz pure alcohol)caffeine 1-2 cups/dayHumiliation, Afraid, Rape, and Kick questionnaireAnswerDate RecordedWithin the last year, have you been afraid of your partner or ex-partner?No09/03/2023Within the last year, have you been humiliated or emotionally abused in other ways by your partner or ex-partner?Patient eaetdakr23/05/2024Within the last year, have you been kicked, [...] or relatives? Never09/03/2023How often do you attend jehovah's witness or sikhism services?More than 4 times per year09/03/2023o you belong to any clubs or organizations such as jehovah's witness groups, unions, fraPreDx [employer] or athletic groups, or school groups?No 09/03/2023How often do you attend meetings of the clubs or organizations you belong to?Patient puxxrwel15/05/2024re you , , , , never , or living with a partner?Lmhccvm1309/03/2023UDIT-C AnswerDate RecordedQ1: How often do you have [...] and heating?Somewhat hard09/03/2023 PHQ-2AnswerDate RecordedPatient Health Questionnaire-2 Lebbx16009/16/2024[facility] [place] of Occupational Health - Occupational Stress QuestionnaireAnswerDate [...] you didn't have money to get more.Patient woxluycx85/05/2024 PRAPARE - TransportationAnswerDate RecordedIn the past 12 [...] now)?No09/03/2023CommentsUnknownSex and Gender InformationValueDate RecordedSex Assigned at KoqnySmfhwq54/02/2024 6:11 PM EDT Legal CreLsoopj94/15/2023 7:06 PM EDTGender IrkvmohhZbryjn45/02/2024 6:11 PM EDT Sexual OrientationNot on filedocumented as of this encounter Plan of Treatment Not on file documented as of this encounter Visit Diagnoses Not on filedocumented in this encounter Care Teams Team MemberRelationshipSpecialtyStart DateEnd Date Gerardo Poe MD [address] [facility] [[email or web address]] [address] [place] [address] PCP - GeneralInternal Medicine12/05/22 Gerardo Poe MD [address] [facility] [[email or web address] [address] [place] [address] PCP - Asmita Owens10/29/23 Griselda Pittman LPN [address] [facility] [[email or web address] [address] [place] [address] 06/08/25documented as of this encounter
--- OUTSIDE RECORDS SUMMARY | 2025-07-20 07:10 | XMS_ITS | Encounter Summary ---
Author Organization [facility] Address [address] [place] [address] Care Team Providers Care Hot Stick Man Name Role Phone Gerardo Poe MD Primary Care Provider [phone] Gerardo Poe MD Unavailable [phone] Griselda Pittman LPN Unavailable Encounter Details DateTypeDepartmentCare Team (Latest Contact Info)Ecuuexrmlge25/08/2025Abstract [facility] [address] [place] [address] Gerardo Poe MD [address] [facility] 110 [place], [place] [phone] Social History Tobacco UseTypesPacks/DayYears UsedDateSmoking Tobacco: FormerCigarettesQuit: 07/30/2013Smokeless Tobacco: NeverAlcohol UseStandard Drinks/WeekCommentsNever0 (1 standard drink = 0.6 oz pure alcohol)caffeine 1-2 cups/dayHumiliation, Afraid, Rape, and Kick questionnaireAnswerDate RecordedWithin the last year, have you been afraid of your partner or ex-partner?No09/03/2023Within the last year, have you been humiliated or emotionally abused in other ways by your partner or ex-partner?Patient /05/2024Within the last year, have you been kicked, [...] or relatives? Never09/03/2023How often do you attend tenriism or gnosticist services?More than 4 times per year09/03/2023o you belong to any clubs or organizations such as tenriism groups, unions, fraNoveporter or athletic groups, or school groups?No 09/03/2023How often do you attend meetings of the clubs or organizations you belong to?Patient gpiuwlev19/05/2024re you , , , , never , or living with a partner?Bqzbwci9609/03/2023UDIT-C AnswerDate RecordedQ1: How often do you have [...] and heating?Somewhat hard09/03/2023 PHQ-2AnswerDate RecordedPatient Health Questionnaire-2 Cikzm54508/11/2024[facility] [place] of Occupational Health - Occupational Stress QuestionnaireAnswerDate [...] you didn't have money to get more.Patient wvzljxva49/05/2024 PRAPARE - TransportationAnswerDate RecordedIn the past 12 [...] now)?No09/03/2023CommentsUnknownSex and Gender InformationValueDate RecordedSex Assigned at MgznmMslxqo39/02/2024 6:11 PM EDT Legal OnkWoitwo03/15/2023 7:06 PM EDTGender JxvypozwEstgxo49/02/2024 6:11 PM EDT Sexual OrientationNot on filedocumented as of this encounter Plan of Treatment Not on file documented as of this encounter Visit Diagnoses Not on filedocumented in this encounter Care Teams Team MemberRelationshipSpecialtyStart DateEnd Date Gerardo Poe MD [address] [facility] [address] [place] [address] PCP - GeneralInternal Medicine12/05/22 Gerardo Poe MD [address] [facility] [address] [place] [address] PCP - Asmita Owens10/29/23 Griselda Pittman LPN [address] [facility] [address] [place] [address] 06/08/25documented as of this encounter
--- OUTSIDE RECORDS SUMMARY | 2025-07-20 07:10 | XMS_ITS | Clinical Summary ---
Author Organization [facility] Address [address] [place], [place] [address] Care Team Providers Care Cane Weigher Name Role Phone Lui BOLDEN MD, Gerardo Mcdermott Primary Care Provider [phone] Allergies Active AllergyReactionsCriticalityNoted DateCommentsIodinated Contrast Media Hives,SjgbulaBaco19/30/4898OnljlhrkzlsiMrmlmud78/17/2017Sulfa (Sulfonamide Antibiotics)Hives,Other: See Yjjxougf22/17/2017 Fever TrimethoprimHives,Other: See Anwtjtvt05/17/2017 Fever Medications MedicationSigDispense QuantityRefillsLast FilledStart DateEnd DateStatus FLUoxetine (PROZAC) 10 mg capsule Take 20 mg by mouth every morning. 11004/06/2017Active IFEREX 150 150 mg iron capsule Take 150 mg by mouth twice daily.Active PRILOSEC OTC 20 mg tablet TAKE 1 TABLET BY MOUTH ONE TIME A QCH179204/27/2017Active aspirin 325 mg tablet Take 325 mg by mouth once daily.Active metoprolol succinate ER (TOPROL XL) 50 mg 24 hr tablet Take 50 mg by mouth once daily.05/24/2017Active LORazepam (ATIVAN) 0.5 mg tab Indications:Iron deficiency anemia, unspecified iron deficiency anemia typeTake 0.5 mg by mouth three times daily as needed.Active Active Problems ProblemNoted DateDiagnosed DateIron deficiency coyzue2205/18/2017 Immunizations ImmunizationAdministration DatesNext Duerabies immune globulin (RIG)05/28/2019 Family History Medical HistoryRelationCommentsHeartFatherDiabetesMotherMental illnessMother RelationStatusCommentsFatherAliveMotherAlive Social History Tobacco UseTypesPacks/DayYears UsedDateSmoking Tobacco: FormerSmokeless Tobacco: Never Comments:Quit 2012 PHQ-2AnswerDate RecordedPHQ-2 zwwqd357Area Deprivation IndexAnswerDate RecordedNational Score (1-100), lower number is lower riskNot on file07/06/2020 State Score (1-10), lower number is lower riskNot on file07/06/2020Data from: https://www.neighborhoodatlas.medicine.[facility].edu/. Last address used for calculationNot on file07/06/2020CommentsNoSex and Gender Information ValueDate RecordedSex Assigned at BirthNot on fileLegal AepDeywcg74/16/2017 11:55 AM EDTGender IdentityNot on fileSexual OrientationNot on file Last Filed Vital Signs Vital SignReadingTime TakenCommentsBlood Qghoopdx293/8404 2:13 PM EDT mariana QpFshqz4301 2:13 PM ACMKpfbnyqkhba40.4 ??C (97.6 ??F)11/01/2020 2:13 PM EDTRespiratory Zgis4693 2:13 PM EDTOxygen Ypbnirogjc15% 11/01/2020 2:13 PM EDTInhaled Oxygen Concentration--Bxucfj81.7 kg (219 lb 12.8 oz)11/01/2020 2:13 PM SRZQzepqx414.6 cm (5' 4.02 )11/01/2020 2:13 PM EDTBody Mass Index37.7104 2:13 PM EDT Plan of Treatment Health MaintenanceDue DateLast DoneCommentsAnxiety Fnoyhgoyt78/02/1986Depression Fzzrkbzwi97/02/1986HIV Ipylsrevl27/02/1986Hepatitis C Pbfjkycdq70/02/1986 DTaP,Tdap,Td Vaccine (1 - Tdap)1987Hepatitis B Vaccine (1 of 3 - 19+ 3- dose series)1987Cervical Cancer Cdfifxqgs81/02/1989Mammogram Screening 2008CT Vqnibnwepgzx78/02/2013Cologuard (FIT-DNA)2013Colonoscopy 2013Colorectal Cancer Vndmqkrll32/02/2013Fecal Occult Blood2013Lipid Adtxxrltn90/02/3394Jmhfvnfrbbvbg02/02/2013Pneumococcal Vaccine: 50+ (1 of 1 - PCV)2018Shingrix Vaccine (1 of 2)2018Diabetes Qjrprlrtr63/05/2024 11/01/2020, 04/28/2020, 10/22/2019Covid-19 Vaccine (1 - 2024- season) 2025Influenza Vaccine (#1)2025RSV Vaccine (1 - 1-dose 75+ series) 2043 Procedures Procedure NamePriorityDate/TimeAssociated DiagnosisCommentsCOMPREHENSIVE METABOLIC BNZYUNtwaaco06/05/2021 2:01 PM EDT Obstructive sleep apnea syndrome Iron deficiency anemia, unspecified iron deficiency anemia type from Last 3 Months or Most Recently Relevant to Health Maintenance Results * (ABNORMAL) COMP METABOLIC PANEL (11/01/2020 2:01 PM EDT)ComponentValueRef RangeTest MethodAnalysis TimePerformed AtPathologist SignatureProtein, Total 7.06.3 - 8.0 g/dL11/01/2020 2:35 PM [facility] CareAlbumin4.53.9 - 4.9 g/dL11/01/2020 2:35 PM [facility]TCF[facility] Cancer CareCalcium9.78.5 - 10.2 mg/dL11/01/2020 2:35 PM [facility]TCF[facility] Cancer CareBilirubin, Total0.20.2 - 1.3 mg/dL11/01/2020 2:35 PM EDTCFlower Hospital Cancer CareAlkaline Kukfdepgzsy7562 - 123 U/L 11/01/2020 2:35 PM [facility] ShxmFPH4768 - 35 U/L 11/01/2020 2:35 PM [facility]TCF[facility] Cancer NuxzHkdjgnb465(H)74 - 99 mg/dL11/01/2020 2:35 PM [facility] Comment: The [place] Diabetes Association (ADA) provides guidance for cutoff values for fasting glucose and random glucose. The ADA defines fasting as no caloric intake for at least 8 hours. Fasting plasma glucose results between 100 to 125 mg/dL indicate increased risk for diabetes (prediabetes). Fasting plasma glucose results greater than or equal to 126 mg/dL meet the criteria for diagnosis of diabetes. In the absence of unequivocal hyperglycemia, results should be confirmed by repeat testing. In a patient with classic symptoms of hyperglycemia or hyperglycemic crisis, random plasma glucose results greater than or equal to 200 mg/dL meet the criteria for diagnosis of diabetes. Reference: Standards of Medical Care in Diabetes 2016, [place] [employer] Association. Diabetes Care. 2016.39(Suppl 1). HAP399 - 21 mg/dL11/01/2020 2:35 PM [facility] Cancer Care Creatinine0.700.58 - 0.96 mg/dL11/01/2020 2:35 PM [facility] Cancer NchjApxewy003616 - 144 mmol/L11/01/2020 2:35 PM [facility] Cancer CarePotassium4.33.7 - 5.1 mmol/L11/01/2020 2:35 PM EDT [facility] Cancer TdheMzqhbngb16772 - 105 mmol/L11/01/2020 2:[facility] BnyrEN36104 - 30 mmol/L11/01/2020 2:35 PM [facility] Cancer CareAnion Gap8(L)9 - 18 mmol/L 11/01/2020 2:35 PM [facility] Cancer QxqzLWG673 - 38 U/L 11/01/2020 2:35 PM [facility] Cancer CareeGFR->6004/11/2020 2:35 PM [facility] Cancer CareeGFR- All Other Races>60.11/01/2020 2:35 PM [facility] Cancer CareComment: eGFR (Estimated GFR) Units of measure: mL/min/1.73 meters squared eGFR is derived from the reexpressed MDRD Study equation using the following parameters: serum creatinine, age, gender and race. The creatinine assay has been calibrated to be traceable to IDMS. An eGFR <60 mL/min/1.73m2 for >3 months is consistent with chronic kidney disease. Refer to KDOQI guidelines for clinical interpretation. In patients with unstable renal function, e.g. those with acute kidney injury, the eGFR may not accurately reflect actual GFR. Specimen (Source)Anatomical Location / LateralityCollection Method / Volume Collection TimeReceived TimeBloodBLOOD SPECIMEN / Piwnxai7211/01/2020 2:01 PM EDT 11/01/2020 2:03 PM EDT Narrative Authorizing ProviderResult TypeResult StatusWilfredo Segura MDLABORATORYFinal ResultPerforming OrganizationAddressCity/State/ZIP CodePhone Number [facility] [address] [address] [facility] Cancer Care [address] [place] [address] from Last 3 Months or Most Recently Relevant to Health Maintenance Care Teams Team MemberRelationshipSpecialtyStart DateEnd Date Gerardo Poe II, MD [address] [facility] [address] [place] [address] PCP - GeneralInternal Rusknhcv38/16/17
--- OUTSIDE RECORDS SUMMARY | 2025-07-20 07:10 | XMS_ITS | Encounter Summary ---
Author Organization [facility] Address [address] [place] [address] Care Team Providers Care Lamination Builder Name Role Phone Gerardo Poe MD Primary Care Provider [phone] Gerardo Poe MD Unavailable [phone] Griselda Pittman LPN Unavailable Reason for Visit * ReasonOnset DateCommentsLab Dbnhln1707/09/2025 Encounter Details DateTypeDepartmentCare Team (Latest Contact Info)Ryvdkpfybfy23/11/2025Telephone [facility] [address] [place] [phone] Gerardo Poe MD [address] [facility] 110 [place], [place] [id number] Lab Orders Social History Tobacco UseTypesPacks/DayYears UsedDateSmoking Tobacco: FormerCigarettesQuit: 07/30/2013Smokeless Tobacco: NeverAlcohol UseStandard Drinks/WeekCommentsNever0 (1 standard drink = 0.6 oz pure alcohol)caffeine 1-2 cups/dayHumiliation, Afraid, Rape, and Kick questionnaireAnswerDate RecordedWithin the last year, have you been afraid of your partner or ex-partner?No09/03/2023Within the last year, have you been humiliated or emotionally abused in other ways by your partner or ex-partner?Patient rexuuijz39/05/2024Within the last year, have you been kicked, [...] or relatives? Never09/03/2023How often do you attend moravian or sikh services?More than 4 times per year09/03/2023o you belong to any clubs or organizations such as moravian groups, unions, fraternal or athletic groups, or school groups?No 09/03/2023How often do you attend meetings of the clubs or organizations you belong to?Patient zjjqdnog53/05/2024re you , , , , never , or living with a partner?Synvlna5509/03/2023UDIT-C AnswerDate RecordedQ1: How often do you have [...] and heating?Somewhat hard09/03/2023 PHQ-2AnswerDate RecordedPatient Health Questionnaire-2 Rbpus95508/11/2024[facility] [place] of Occupational Health - Occupational Stress QuestionnaireAnswerDate [...] you didn't have money to get more.Patient jceidrvf72/05/2024 PRAPARE - TransportationAnswerDate RecordedIn the past 12 [...] now)?No09/03/2023CommentsUnknownSex and Gender InformationValueDate RecordedSex Assigned at SqogrHtorfo44/02/2024 6:11 PM EDT Legal DpsMmyxaz10/15/2023 7:06 PM EDTGender VaivgkvfRkbazh20/02/2024 6:11 PM EDT Sexual OrientationNot on filedocumented as of this encounter Miscellaneous Notes * Telephone Encounter - Vernell Lott LPN - 07/09/2025 1:06 PM EST LAB ORDERS ENTERED documented in this encounter Plan of Treatment Not on file documented as of this encounter Procedures Procedure NamePriorityDate/TimeAssociated DiagnosisCommentsHEPATITIS B SURFACE ANTIBODY LIYcgitks39/11/2025 1:09 PM EST Exposure to viral hepatitis documented in this encounter Results * Hepatitis B surface antibody (07/09/2025 1:09 PM EST)ComponentValueRef Range Test MethodAnalysis TimePerformed AtPathologist SignatureHEPATITIS B SURFACE ANTIBODY SULGI-XYNRFCEURKT-TQMSZJMRJTDGYYyptxqxo (Source)Anatomical Location / LateralityCollection Method / VolumeCollection TimeReceived TimeBloodVenous blood specimen / Dywvolu2007/09/2025 1:09 PM EST07/09/2025 1:09 PM EST Narrative Resulting Agency Comment Performing Organization Information ?Site ID: QPT ?Name: [facility] ?Address: [address] [place] [address], [address] [place] [id number] ?Director: Tashi Osborne MD Authorizing ProviderResult TypeResult StatusDaniisrael Poe MDLAB BLOOD ORDERABLESFinal ResultPerforming OrganizationAddressCity/State/ZIP CodePhone Number [facility] documented in this encounter Visit Diagnoses Diagnosis Exposure to viral hepatitis documented in this encounter Care Teams Team MemberRelationshipSpecialtyStart DateEnd Date Gerardo Poe MD [address] [place] [address] PCP - GeneralInternal Medicine12/05/22 Gerardo Poe MD [address] [place] [address] PCP - [place] [facility]10/29/23 Griselda Pittman LPN [address] [place] [address] 06/08/25documented as of this encounter
--- OUTSIDE RECORDS SUMMARY | 2025-07-20 07:10 | XMS_ITS | Encounter Summary ---
Author Organization [facility] Address [address] [place] [address] Care Team Providers Care Gluing Pressman Name Role Phone Gerardo Poe MD Primary Care Provider [phone] Gerardo Poe MD Unavailable Griselda Pittman LPN Unavailable Encounter Details DateTypeDepartmentCare Team (Latest Contact Info)Vozfvcrdbzs90/09/2025Abstract [facility] [address] [place] [address] Gerardo Poe MD [address] [facility] 110 [place], [place] [phone] Social History Tobacco UseTypesPacks/DayYears UsedDateSmoking Tobacco: FormerCigarettesQuit: 07/30/2013Smokeless Tobacco: NeverAlcohol UseStandard Drinks/WeekCommentsNever0 (1 standard drink = 0.6 oz pure alcohol)caffeine 1-2 cups/dayHumiliation, Afraid, Rape, and Kick questionnaireAnswerDate RecordedWithin the last year, have you been afraid of your partner or ex-partner?No09/03/2023Within the last year, have you been humiliated or emotionally abused in other ways by your partner or ex-partner?Patient gfijsghi62/05/2024Within the last year, have you been kicked, [...] or relatives? Never09/03/2023How often do you attend shinto or hinduism services?More than 4 times per year09/03/2023o you belong to any clubs or organizations such as shinto groups, unions, fraviavoo or athletic groups, or school groups?No 09/03/2023How often do you attend meetings of the clubs or organizations you belong to?Patient vsefxcsv05/05/2024re you , , , , never , or living with a partner?Bqpwgdt0709/03/2023UDIT-C AnswerDate RecordedQ1: How often do you have [...] and heating?Somewhat hard09/03/2023 PHQ-2AnswerDate RecordedPatient Health Questionnaire-2 Graqk31808/11/2024[facility] [place] of Occupational Health - Occupational Stress QuestionnaireAnswerDate [...] you didn't have money to get more.Patient bhenpuqr67/05/2024 PRAPARE - TransportationAnswerDate RecordedIn the past 12 [...] now)?No09/03/2023CommentsUnknownSex and Gender InformationValueDate RecordedSex Assigned at GieyjSptwjp10/02/2024 6:11 PM EDT Legal BdwBkwoje37/15/2023 7:06 PM EDTGender KdalhpzzTtszen18/02/2024 6:11 PM EDT Sexual OrientationNot on filedocumented as of this encounter Plan of Treatment Not on file documented as of this encounter Visit Diagnoses Not on filedocumented in this encounter Care Teams Team MemberRelationshipSpecialtyStart DateEnd Date Gerardo Poe MD [address] [facility] [address] [place] [address] PCP - GeneralInternal Medicine12/05/22 Gerardo Poe MD [address] [facility] [address] [place] [address] PCP - Asmita Owens10/29/23 Griselda Pittman LPN [address] [facility] [address] [place] [address] 06/08/25documented as of this encounter
--- OUTSIDE RECORDS SUMMARY | 2025-07-20 07:10 | XMS_ITS | Clinical Summary ---
Author Organization [facility] Address [address] [place] [address] Phone Care Team Providers Care Engineer Assistant Name Role Phone Gerardo Poe MD Primary Care Provider [phone] Allergies Active AllergyReactionsCriticalityNoted QrhpYwmuohpvLyszreLijiQze20/22/2023 ZpnkfviruGhrwoveo68/27/2023Sulfa (Sulfonamide Antibiotics)YnfwbunPdl95/22/2023 Medications MedicationSigDispense QuantityRefillsLast FilledStart DateEnd DateStatus aspirin 81 mg EC tablet Take 1 tablet (81 mg) by mouth once daily.Active LORazepam (Ativan) 0.5 mg tablet Take 1 tablet (0.5 mg) by mouth every 8 hours if needed for anxiety.Active omeprazole OTC (PriLOSEC OTC) 20 mg EC tablet Take 1 tablet (20 mg) by mouth once daily in the morning. Take before meals. Do not crush, chew, orsplit.Active FLUoxetine (PROzac) 20 mg capsule Take 1 capsule (20 mg) by mouth once daily.Active levocetirizine (Xyzal) 5 mg tablet Take 1 tablet (5 mg) by mouth once daily in the evening.06/20/2024ctive nystatin (Mycostatin) 100,000 unit/gram powder Apply to the affected area, once daily, 30 day swkrbb3706/20/2024ctive triamcinolone (Kenalog) 0.1 % cream Apply topically to affected areas bid as needed for itching, avoid face, axilla, and groin108/20/2023ctive ondansetron (Zofran) 4 mg tablet 1 tablet (4 mg).07/04/2024ctive metoprolol succinate XL (Toprol-XL) 50 mg 24 hr tablet Indications:Essential hypertensionTake 1 tablet (50 mg) by mouth once daily. 30 tablet 5Active metoprolol succinate XL (Toprol-XL) 50 mg 24 hr tablet Indications:Essential hypertensionTake 1 tablet (50 mg) by mouth once daily. Do not crush or chew. 90 tablet Discontinued Active Problems ProblemNoted DateDiagnosed DateBMI 35.0-35.9,adult07/07/2024Former smoker 07/07/2024re-operative cardiovascular xqihkyypgmm36/09/2024Encounter to discuss test ivhjamh9806/25/2023bnormal EKG108/20/2022Essential zdeenlnblhkx03/22/2023 Wfmddacrapuqwz61/22/2023Iron deficiency nlrkax6506/20/2023aroxysmal SVT (supraventricular tachycardia)06/20/2023 Encounters DateTypeDepartmentCare JqbxBufcdaglnoe81/19/2025Refill at [facility] [address] [place] [phone] Candida Howell MD Essential dkhxthvuohxq70/10/2025Telephone at [facility] [address] [place] [phone] Fabiana Ruelas LPN Medical Advice/Lynbovav42/09/2025Scanned Document [facility] [address] [place] [phone] Scanning, Generic Provider from Last 3 Months Family History Medical HistoryRelationNameCommentsCancerFathercardiac pacemakerFatherDiabetes MotherRelationNameStatusCommentsFatherMother Social History Tobacco UseTypesPacks/DayYears UsedDateSmoking Tobacco: FormerCigarettesQuit: 2009Smokeless Tobacco: Never Tobacco Cessation:Counseling Given: Yes Alcohol UseStandard Drinks/WeekCommentsNever0 (1 standard drink = 0.6 oz pure alcohol)CommentsUnknownSex and Gender InformationValueDate RecordedSex Assigned at BirthNot on fileLegal OeaPhyfiz27/24/2023 12:24 PM EDTGender IdentityNot on fileSexual OrientationNot on file Last Filed Vital Signs Vital SignReadingTime TakenCommentsBlood Oakksbpq595/6807/07/2024 11:01 AM EST Tlhpk986307/07/2024 10:29 AM ESTTemperature--Respiratory Rate--Oxygen Saturation-- Inhaled Oxygen Concentration--Oovhek40.3 kg (208 lb)07/07/2024 10:29 AM EST Yvvaoi112.6 cm (5' 4 )07/07/2024 10:29 AM ESTBody Mass Index35.7109/07/2023 10:29 AM EST Plan of Treatment DateTypeDepartmentCare Team (Latest Contact Info)Hdrbbsakymd47/22/2026 10:45 AM ESTOffice Visit [facility] [address] [facility] [address] [place] [phone] Candida Howell MD [address] [facility] [address] [place], [place] [id number] Health MaintenanceDue DateLast DoneCommentsCT Fcivdgpplcbp1968FIT-DNA (Cologuard)1968FIT1968HIV Dtwaobugt1968Lipid Panel1968 Khyufjqkvfcvi1968MMR Vaccines (1 of 1 - Standard series)1969Diabetes Gdrnhunvq44/02/1986Hepatitis C Kfjgujqkx56/02/1986Hepatitis A Vaccines (1 of 2 - Risk 2-dose series)1987Pneumococcal Vaccine (1 of 2 - PCV)1987 Cervical Cancer Hutexvnge76/02/1989HPV/Yjfxhk0505/31/1989Pap Smear1989Zoster Vaccines (1 of 2)05/31/20186007Cfmzpcico92, 08/19/2021, 01/29/2020, Additional history existsYearly Adult Uksinczg09 COVID-19 Vaccine ( - season)2025Influenza Vaccine (#1)2025 Epuaiucxidb21Colorectal Cancer Exrwykqyt03/07/2027DTaP/Tdap/Td Vaccines (2 - Td or Tdap)Hepatitis B VaccinesCompleted 07/05/2022, 02/03/2022, 12/30/2021, Additional history existsHIB VaccinesAged OutNo longer eligible based on patient's age to complete this topicHPV Vaccines Aged OutNo longer eligible based on patient's age to complete this topicIPV VaccinesAged OutNo longer eligible based on patient's age to complete this topic Meningococcal VaccineAged OutNo longer eligible based on patient's age to complete this topicRotavirus VaccinesAged OutNo longer eligible based on patient's age to complete this topic Insurance Care Teams Team MemberRelationshipSpecialtyStart DateEnd Date Gerardo Poe MD [address] [facility] [address] [phone] PCP - General01/08/23
== END 2025-07-15 10:01 | disposition home or self-care (01) ==
LOC: SLEEP 07-20 07:06
PROVIDERS: PCP Psychiatry & Neurology Neurology; Visit Provider Psychiatry & Neurology Neurology
DX: G47.33 Obstructive sleep apnea (adult) (pediatric) (principal)
CPT/HCPCS: 95806